=== PATIENT | male | born 1990 | race Caucasian/White ===

== ENCOUNTER 2018-11-18 01:56 | Emergency (ER) | payer MEDICAID, SELFPAY ==
[2018-11-18 01:57] VITALS: BP 150/87; PULSE 84; RESP 16; TEMP 36.9; O2SAT 97; BMI 25.2
--- NOTE | 2018-11-18 02:31 | ED.DCSUM_ITS ---
- ER Visit Summary Date of Service: 11/18/18 Chief Complaint: Left thumb laceration History of Present Illness: The patient is a 28 M who has a left thumb laceration. Happened 1/2-hour ago. He was using a saws all when he cut into his left thumb. His last tetanus is unknown. Denies any loss of function of the thumb. No other symptoms. Physical Examination: Left thumb exam reveals a small laceration on the lateral part of the nail that extends about 0.5 cm into the nail. The involvement of the skin is only about 0.2 cm. It is non-gaping. He has full range of motion. It does not go into the nailbed. Test Results: None performed Emergency Department Course and Treatment: The patient's tetanus will be updated. He will be given Tylenol. I did put Dermabond on the small area on the lateral nailbed that was slightly lacerated. The laceration into the finger nail will grow out on its own. I do not feel he needs any repair of the nail because the nailbed is intact and normal. Patient will be discharged. Treatment Plan: [] Disposition: Discharge Impression: Left thumb laceration, 0.2 cm This note was generated with [employer] dictation software. It may contain incorrect words, spelling, and punctuation that were not noted in review of the chart prior to signing ED Disposition - Plan for ED Patient: Referrals: Care Physician,No Primary [Primary Care Provider] -
--- NOTE | 2018-11-18 02:33 | ED.DEP ---
ED Disposition - Plan for ED Patient: Disposition: Home or Assisted Living Instructions: LACERATION, Hand Referrals: Care Physician,No Primary [Primary Care Provider] -
[2018-11-18] MEDS: Acetaminophen 500 MG Tablet 1000 MG PO (02:34)
[2018-11-18] MEDS: Diphth,Pertuss(Acell),Tet Vac 0.5 ML Vial IM (02:35)
[2018-11-18 03:04] VITALS: BP 138/94; PULSE 75; RESP 16; O2SAT 99
== END 2018-11-18 03:04 | disposition home or self-care (01) ==
PROVIDERS: Emergency Provider Emergency Medicine
DX: S61.112A Laceration without foreign body of left thumb with damage to nail, initial encounter (principal); Z23 Encounter for immunization; Z72.0 Tobacco use; W29.3XXA Contact with powered garden and outdoor hand tools and machinery, initial encounter; Y93.89 Activity, other specified; Y92.89 Other specified places as the place of occurrence of the external cause; Y99.8 Other external cause status
CPT/HCPCS: 90715

== ENCOUNTER 2018-11-18 13:01 | Emergency (ER) | payer MEDICAID, SELFPAY ==
[2018-11-18 01:57] VITALS: BMI 25.2
[2018-11-18 13:02] VITALS: BP 161/83; PULSE 109; RESP 18; TEMP 36.8; O2SAT 98; BMI 25.1
--- NOTE | 2018-11-18 13:42 | ED.VISSUMM ---
- ER Visit Summary Date of Service: 11/18/18 Chief Complaint: Laceration History of Present Illness: The patient is a 28 M laceration to the left thumb. This occurred yesterday. He was seen in the ED. The cutaneous wound was glued. The nail bed was not injured and the nail was left in place. Patient presents for pain and bleeding. Physical Examination: Left thumb shows a 2 mm laceration adjacent to the nailbed which appears to have been closed with tissue adhesive. There is scant bleeding from the nail laceration. Diffuse pain on palpation. Otherwise thumb is soft. No erythema or discharge. No warmth. Good strength and range of motion. Test Results: None indicated Emergency Department Course and Treatment: There is no any indication for testing or other diagnostic imaging. There is no indication that he has a foreign body, bone involvement, tendon involvement, infection. Risks were discussed. He received a dose of [place] here. He was treated with bacitracin and a dressing was applied. Follow-up with primary care. Patient was concerned that he did not get a referral to hand surgery. I advised that he will likely not need to see hand surgery, but if he has worsening issues, he was referred to Dr. Whitman. Treatment Plan: As above Disposition: Discharge Impression: 1. Left thumb laceration subsequent encounter This note was generated with [employer] dictation software. It may contain incorrect words, spelling, and punctuation that were not noted in review of the chart prior to signing ED Disposition - Plan for ED Patient: Referrals: Davie Carvajal MD [Primary Care Provider] -
--- NOTE | 2018-11-18 13:45 | ED.DEP ---
ED Disposition - Plan for ED Patient: Instructions: LACERATION, Hand Prescriptions: Naproxen [Naprosyn] 500 mg PO BID PRN #20 tab Prescription Printed Referrals: Davie Carvajal MD [Primary Care Provider] - Michael Whitman MD [STAFF PHYSICIAN] - As Needed
[2018-11-18] MEDS: HYDROcodone Bitartrate/Apap 5/325 Tablet PO (13:49)
[2018-11-18 14:01] VITALS: BP 138/79; PULSE 99; RESP 16; O2SAT 99
== END 2018-11-18 14:02 | disposition home or self-care (01) ==
LOC: ED 13:41
PROVIDERS: Emergency Provider Emergency Medicine; Family Provider Family Medicine; PCP Family Medicine
DX: S61.112D Laceration without foreign body of left thumb with damage to nail, subsequent encounter (principal); S61.112A Laceration without foreign body of left thumb with damage to nail, initial encounter; Z23 Encounter for immunization; Z72.0 Tobacco use; W29.3XXA Contact with powered garden and outdoor hand tools and machinery, initial encounter; Y93.89 Activity, other specified; Y92.89 Other specified places as the place of occurrence of the external cause; Y99.8 Other external cause status
CPT/HCPCS: 12001; 90715; 99282

== ENCOUNTER 2019-03-03 14:38 | Emergency (ER) | payer MEDICAID, SELFPAY ==
[2019-03-03 14:42] VITALS: BP 122/71; PULSE 71; RESP 18; TEMP 36.5; O2SAT 96; BMI 24.3
--- NOTE | 2019-03-03 15:46 | EKG12_ITS ---
Test Reason : CP Blood Pressure : / mmHG Vent. Rate : 068 BPM Atrial Rate : 068 BPM P-R Int : 120 ms QRS Dur : 086 ms QT Int : 390 ms P-R-T Axes : 070 081 065 degrees QTc Int : 414 ms Normal sinus rhythm Normal ECG Confirmed by JESÚS SOSA MD ([id number]), tape editor PHILLY NEWMAN ([id number]) on 03/07/2019 10:52:14 AM Referred By: ELSA
--- NOTE | 2019-03-03 15:46 | ED.VISSUMM ---
- ER Visit Summary Date of Service: 03/03/19 Chief Complaint: Chest pain History of Present Illness: The patient is a 28 M presenting with chest pain. Patient states this started around 11 AM. Pain has been intermittent. He has pain left side of his chest. He has associated mild shortness of breath. He has had a cough. He states has been under a lot of stress. Denies depression or suicidal ideation. He denies PE/DVT risk factors. Denies drug use. He has a family history of early heart disease, smoking, no other CAD risk factors. Physical Examination: Vitals are stable. Patient is afebrile. Alert no acute distress. HEENT exam is unremarkable. Neck is supple. Lungs are clear and equal bilaterally. Heart is regular rate and rhythm. Abdomen is soft nontender nondistended. Extremities are unremarkable. Skin is warm and dry. No focal neurologic deficit. Remainder of exam is unremarkable. Emergency Department Course and Treatment: Patient given aspirin. EKG is sinus rate of 68 with no acute ischemic changes. Chest x-ray shows no acute process. CBC, chemistries unremarkable. Troponin is negative. D-dimer negative. Patient's heart score is 1. He declined delta troponin. He feels that this was likely a panic attack. He is feeling improved. He is advised to return to the ED if he has any worsening complaints. He will follow-up with his primary care physician. Disposition: Discharge home Impression: Atypical chest pain This note was generated with [employer] dictation software. It may contain incorrect words, spelling, and punctuation that were not noted in review of the chart prior to signing ED Disposition - Plan for ED Patient: Instructions: CHEST PAIN, Uncertain Cause Referrals: Davie Carvajal MD [Primary Care Provider] -
--- NOTE | 2019-03-03 15:50 | RAD_ITS ---
STUDY: X-RAY CHEST REASON FOR EXAM: Male, 28 years old. Chest pain TECHNIQUE: Single AP portable view of the chest. COMPARISON: 10/05/2015 FINDINGS: The lungs are clear and expanded. There is no demonstrated pleural abnormality. Normal size heart. Normal mediastinum and [place]. Normal visualized pulmonary arteries. Normal visualized aortic arch and descending thoracic aorta. Normal visualized thoracic spine. Normal visualized ribs, clavicles, and shoulders. There is no demonstrated abnormality of the visualized soft tissue structures of the upper abdomen. RAD/Chest 1 View (Portable) IMPRESSION: Normal x-ray examination of the chest. Electronically Signed: Heron Matos MD at 16:06 EDT Tel , Service support ,
[2019-03-03 15:59] LABS: Absolute Lymphocyte Count 2.57 X10^3/uL (0.83-4.51); Absolute Neutrophil Count 3.9 X10^3/uL (2.0-7.7); Basophil# 0.04 X10^3/uL; Basophil% 0.5 % (0-1); Eosinophil# 0.11 X10^3/uL; Eosinophils% 1.5 % (0-5); Hematocrit 42.9 % (40-54); Lymphocyte # 2.57 X10^3/ul (4.0); Lymphocyte % 34.2 % (19-41); Mean Corp Hgb Conc 32.6 g/dL (32-36); Mean Corpuscular Hgb 29.7 pg (27.0-32.0); Mean Corpuscular Volume 91.1 fL (80-94); Monocyte# 0.82 X10^3/uL; Monocyte% 10.9 % (0-10); NRBC Flagged by Analyzer 0 % (0-5); Neutrophil # 3.94 X10^3/uL (2.7-7.7); Neutrophil % 52.5 % (47-70); Platelet Count 260 K/mm3 (150-450); RBC Distribution Width CV 13.2 % (11.6-14.6); Red Blood Count 4.71 M/mm3 (4.6-6.2); White Blood Count 7.5 K/mm3 (4.4-11.0)
[2019-03-03 16:21] VITALS: BP 126/81; PULSE 62; RESP 18; O2SAT 98
[2019-03-03 16:21] LABS: D-Dimer Quantitative (DVT/PE) 0.32 FEU/ug/m (0.27-0.49)
[2019-03-03 16:26] LABS: Anion Gap 7 (5-15); BUN 16 mg/dL (7-18); BUN/Creat Ratio 15.1 RATIO (10-20); Chloride 107 mmol/L (98-107); Creatinine, Serum 1.06 mg/dL (0.70-1.30); EST Glomerular Filtration Rate 87 mL/min (>60); Est Glom Filt Rate - Afr Amer 106 mL/min (>60); Estimated Creatinine Clearance 106.17 ml/min; Glucose 91 mg/dL (74-106); Potassium 3.8 mmol/L (3.5-5.1); Sodium Level 139 mmol/L (136-145)
--- NOTE | 2019-03-03 16:36 | ED.DEP ---
ED Disposition - Plan for ED Patient: Instructions: CHEST PAIN, Uncertain Cause Referrals: Davie Carvajal MD [Primary Care Provider] -
[2019-03-03] MEDS: Aspirin 81 MG TAB.CHEW 324 MG PO (16:57)
[2019-03-03 17:03] VITALS: BP 123/88; PULSE 63; RESP 18; O2SAT 98
== END 2019-03-03 17:04 | disposition home or self-care (01) ==
PROVIDERS: Emergency Provider Emergency Medicine; Family Provider Family Medicine; PCP Family Medicine
DX: R07.89 Other chest pain (principal); Z72.0 Tobacco use
CPT/HCPCS: 71045; 80048; 84484; 85025; 85379; 93005; 99285; A4216

== ENCOUNTER 2019-04-08 09:26 | Emergency (ER) | payer MEDICAID, SELFPAY ==
[2019-04-08 09:27] VITALS: BP 134/70; PULSE 70; RESP 16; TEMP 36.4; O2SAT 100; BMI 24.3
--- NOTE | 2019-04-08 09:41 | RAD_ITS ---
STUDY: X-RAY - LEFT FOOT CLINICAL: Male, 28 years old. TECHNIQUE: view(s) of the foot. COMPARISON: None. FINDINGS: There is no evidence of osseous or articular abnormality seen. No soft tissue swelling identified. Again noted the undisplaced fracture of the lateral malleolus. RAD/Foot min 3 Views IMPRESSION: Negative x-ray examination of the left foot. Electronically Signed: Tom Baldwin, at 10:26 EST Tel , Service support ,
--- NOTE | 2019-04-08 09:41 | RAD_ITS ---
STUDY: X-RAY - LEFT TIBIA AND FIBULA REASON FOR EXAM: Male, 28 years old. TECHNIQUE: view(s) of the tibia and fibula were obtained. COMPARISON: None. FINDINGS: Normal visualized tibia. Normal visualized fibula. The soft tissue structures are unremarkable. There is an undisplaced fracture of the lateral malleolus RAD/Tibia & Fibula 2 Views IMPRESSION: Undisplaced fracture lateral lateral malleolus the study is otherwise negative. Electronically Signed: Tom Baldwin, at 10:28 EST Tel , Service support ,
--- NOTE | 2019-04-08 09:41 | RAD_ITS ---
STUDY: X-RAY - LEFT ANKLE REASON FOR EXAM: Male, 28 years old. TECHNIQUE: 3 view(s) of the ankle. COMPARISON: None. FINDINGS: There is an undisplaced fracture involving the lateral malleolus without significant soft tissue swelling. The ankle mortise is unremarkable. The subtalar joint is within normal limits. RAD/Ankle min 3 Views IMPRESSION: Undisplaced fracture lateral malleolus Electronically Signed: Tom Baldwin, at 10:23 EST Tel , Service support ,
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
[2019-04-08] MEDS: HYDROcodone Bitartrate/Apap 5/325 Tablet PO (09:46)
[2019-04-08 10:32] VITALS: RESP 18
--- NOTE | 2019-04-08 10:38 | DCINST.ED_ITS ---
ED Disposition - Plan for ED Patient: Disposition: Home or Assisted Living Instructions: ANKLE FRACTURE (Distal Fibula), closed Prescriptions: Hydrocodone/Acetaminophen [[place] 7.5-325 Tablet] 1 ea PO Q4H PRN PRN #20 tab PRN Reason: Pain Or Fever Prescription Printed Referrals: Adolfo Phelps DO [STAFF PHYSICIAN] - As soon as possible Additional Instructions: Ice and elevate. No weightbearing until seen in follow-up with orthopedic physician. They may change her over to a walking boot. [place] for pain and Motrin for pain and swelling. Do not drive or drink alcohol while using the [place].
== END 2019-04-08 10:58 | disposition home or self-care (01) ==
PROVIDERS: Emergency Provider Emergency Medicine; Family Provider Family Medicine; PCP Family Medicine
DX: S82.832A Other fracture of upper and lower end of left fibula, initial encounter for closed fracture (principal); Z72.0 Tobacco use; V09.9XXA Pedestrian injured in unspecified transport accident, initial encounter; Y93.89 Activity, other specified; Y92.008 Other place in unspecified non-institutional (private) residence as the place of occurrence of the external cause; Y99.8 Other external cause status
CPT/HCPCS: 73590; 73610; 73630; 99285

== ENCOUNTER → 2019-04-13 08:42 | Outpatient (CLI) | payer MEDICAID, SELFPAY ==
[2019-04-13 08:38] VITALS: BMI 24.3
--- NOTE | 2019-04-13 08:44 | RAD_ITS ---
STUDY: X-RAY - LEFT ANKLE REASON FOR EXAM: Male, 28 years old. Follow-up fracture TECHNIQUE: 3 view(s) of the ankle. COMPARISON: Previous study of 04/08/2019 FINDINGS: Normal visualized distal tibia and fibula. There is a nondisplaced oblique fracture of the lateral malleolus. Normal tibiotalar articulation and ankle mortise. Normal visualized talus and calcaneus. The visualized subtalar, talonavicular, calcaneocuboid and tarsal articulations are normal. The soft tissue structures are unremarkable. RAD/Ankle min 3 Views IMPRESSION: Nondisplaced oblique hairline fracture of the lateral malleolus. Electronically Signed: Oc Miller MD at 17:15 EST , Service support ,
== END ==
PROVIDERS: Family Provider Family Medicine; PCP Family Medicine; Referring Provider Orthopaedic Surgery; Visit Provider Orthopaedic Surgery
DX: S82.892A Other fracture of left lower leg, initial encounter for closed fracture (principal)
CPT/HCPCS: 73610

== ENCOUNTER → 2019-04-20 10:45 | Outpatient (CLI) | payer MEDICAID, SELFPAY ==
[2019-04-20 07:56] VITALS: BMI 24.3
--- NOTE | 2019-04-20 10:46 | RAD_ITS ---
STUDY: X-RAY - LEFT ANKLE REASON FOR EXAM: Male, 28 years old. Follow-up fracture. TECHNIQUE: 3 view(s) of the ankle. COMPARISON: April 13, 2019. FINDINGS: Normal visualized distal tibia. The nondisplaced oblique fracture of the distal fibular diametaphysis is no longer clearly visualized possibly due to the presence of a semiradiopaque cast about the foot and ankle. Normal tibiotalar articulation and ankle mortise. Normal visualized talus and calcaneus. The visualized subtalar, talonavicular, calcaneocuboid and tarsal articulations are normal. The soft tissue structures are unremarkable. RAD/Ankle min 3 Views IMPRESSION: Limited visualization of the distal fibular fracture due to the semiradiopaque cast. There is no change in alignment. Electronically Signed: Moncho Alejandre DO at 19:04 EST Tel [phone], Service support ,
== END ==
PROVIDERS: Family Provider Family Medicine; PCP Family Medicine; Referring Provider Orthopaedic Surgery; Visit Provider Orthopaedic Surgery
DX: S82.62XA Displaced fracture of lateral malleolus of left fibula, initial encounter for closed fracture (principal)
CPT/HCPCS: 73610

== ENCOUNTER → 2019-05-02 09:34 | Outpatient (CLI) | payer MEDICAID, SELFPAY ==
[2019-04-20 07:56] VITALS: BMI 24.3
--- NOTE | 2019-05-02 09:35 | RAD_ITS ---
STUDY: X-RAY - LEFT ANKLE REASON FOR EXAM: Male, 28 years old. FX F/U TECHNIQUE: 3 view(s) of the ankle. COMPARISON: None. FINDINGS: Normal visualized distal tibia and fibula. Healing fracture of the lateral malleolus with normal alignment, otherwise normal medial and lateral malleoli. Mild degenerative disease of the tibiotalar articulation otherwise normal ankle mortise. Normal visualized talus and calcaneus. The visualized subtalar, talonavicular, calcaneocuboid and tarsal articulations are normal. There is no demonstrated fracture. The soft tissue structures are unremarkable. RAD/Ankle min 3 Views IMPRESSION: Healing fracture of the distal fibula. Mild degenerative disease. No subluxation. Electronically Signed: Bruna Mckeon MD at 0:56 EST , Service support ,
== END ==
PROVIDERS: Family Provider Family Medicine; PCP Family Medicine; Referring Provider Orthopaedic Surgery; Visit Provider Orthopaedic Surgery
DX: S82.65XA Nondisplaced fracture of lateral malleolus of left fibula, initial encounter for closed fracture (principal)
CPT/HCPCS: 73610

== ENCOUNTER 2019-05-11 10:26 | Emergency (ER) | payer MEDICAID, SELFPAY ==
[2019-05-02 10:07] VITALS: BMI 24.3
[2019-05-11 10:27] VITALS: BP 121/81; PULSE 95; RESP 17; TEMP 36.6; O2SAT 98; BMI 25.1
--- NOTE | 2019-05-11 10:39 | RAD_ITS ---
STUDY: X-RAY - LEFT FOOT CLINICAL: Male, 28 years old. INCREASED LEFT ANKLE PAIN AFTER TWISTING IT LAST NIGHT -- RECENT FX, WALKING BOOT IN PLACE -- CAST REMOVED ON 05/02 TECHNIQUE: 3 view(s) of the foot. COMPARISON: 04/08/2019 FINDINGS: Normal talus, calcaneus, and tarsal bones. Normal visualized subtalar, talonavicular, calcaneocuboid, tarsal and tarsometatarsal articulations. Normal metatarsi. Normal metatarsophalangeal joint of the great toe. Normal tibial and fibular sesamoid bones. Normal interphalangeal joint of the great toe. Normal phalanges of the great toe. Normal second through fifth metatarsophalangeal joints. Normal interphalangeal joints and phalanges of the lesser toes. The soft tissue structures are unremarkable. RAD/Foot min 3 Views IMPRESSION: Normal x-ray examination of the foot. Electronically Signed: Steve Jack MD at 11:20 EST , Service support ,
--- NOTE | 2019-05-11 10:41 | ED.DCSUM_ITS ---
History of Present Illness Chief Complaint: Lower Extremity Injury Informant: Patient Onset: Yesterday Current Severity: Mild Maximum Severity: Moderate Narrative: Patient presents with recurrent injury to his left ankle. He was seen on April 08 and diagnosed with a Green B distal fibula fracture. He was placed in a cast which was removed on May 02. He is currently in a walking boot and supposed to be nonweightbearing. Patient states yesterday he was without his walking boot. He had squatted down and when pushing off to stand up felt increased pain in his left ankle and lateral left foot. - Past Medical History (1) Ankle fracture Status: Resolved Past Medical History - Allergies and Home Meds Allergies/Adverse Reactions: Allergies ranitidine HCl [From Zantac] Allergy (Verified 05/11/19 10:27) Other tramadol Adverse Reaction (Mild, Verified 05/11/19 10:27) Other makes pt shaky. Believes he may have seized. Primary Care Physician: Davie Carvajal MD [Primary Care Provider] - Prior records reviewed: Yes Surgical History: no surgical history Lives: With Family Smoking Status: Current every day smoker Review of Systems General: Denies: Chills, Fever Eyes: Denies: Visual changes - bilaterally ENT: Denies: Bilateral ear pain Cardiovascular: Denies: Chest pain Respiratory: Denies: Dyspnea, Cough Gastrointestinal: Denies: Abdominal pain, Nausea, Vomiting, Diarrhea Musculoskeletal: Reports: Arthralgias, Extremity Pain Skin: Denies: Rash Hematologic: Denies: Easy bruising Allergy: Denies: Uticaria Physical Exam Vital Signs/Narrative: Vital Signs Temp Pulse Resp BP Pulse Ox 05/11/19 10:27 97.9 F 95 17 121/81 H 98 Inital Vital Signs reviewed: Yes General: Well nourished, Well developed Head: Normocephalic ENT: Moist mucous membranes Neck: Supple Cardiovascular: Regular rate, Regular rhythm Respiratory: No distress, CTA bilaterally Abdomen: Soft, Nontender Extremities: - - Tenderness palpation of the lateral malleolus and over the proximal fifth metatarsal. Mild edema noted. No ecchymosis. Strong distal pulses and wiggles toes appropriately. No tenderness at the knee or proximal fibula. Skin: Normal color Neurological: Alert, Oriented x3 Psychological: Normal affect Diagnostic/Tx/Re-eval Impressions Foot X-Ray 05/11/19 10:39 IMPRESSION: Normal x-ray examination of the foot. Electronically Signed: Steve Jack MD at 11:20 EST , Service support , Ankle X-Ray 05/11/19 10:45 IMPRESSION: Healed tibia and fibular fractures. No acute fracture or suspicious osseous lesion Electronically Signed: Steve Jack MD at 11:22 EST , Service support , 05/11/19 10:39 Foot min 3 Views [RAD] Stat 05/11/19 10:45 Ankle min 3 Views [RAD] Stat - Medical Decision Making She was given naproxen here for pain as he did drive himself to the emergency room and has 2 small children with him. X-ray results are discussed with him. He is to be in his walking boot and using crutches. He will follow-up with Dr. Phelps. He will be given a short course of [place] to help with pain. ED Disposition - Plan for ED Patient: Disposition: Home or Assisted Living Diagnosis: Ankle sprain Instructions: Sprain, Ankle, with X-Ray Prescriptions: Hydrocodone Bitart/Apap 5-325 [[place] 5MG-325MG] 1 tablet PO Q6H PRN PRN 3 Days #10 tablet PRN Reason: Pain Referrals: Adolfo Phelps DO [STAFF PHYSICIAN] - 1 Week
--- NOTE | 2019-05-11 10:45 | RAD_ITS ---
STUDY: X-RAY - LEFT ANKLE REASON FOR EXAM: Male, 28 years old. INCREASED LEFT ANKLE PAIN AFTER TWISTING IT LAST NIGHT -- RECENT FX, WALKING BOOT IN PLACE -- CAST REMOVED ON 05/02 TECHNIQUE: 3 view(s) of the ankle. COMPARISON: 04/20/2019 FINDINGS: Previously noted fractures in the distal tibia and fibula have healed. There is no cortical irregularity or fracture lucency noted. Normal medial and lateral malleoli. Normal tibiotalar articulation and ankle mortise. Normal visualized talus and calcaneus. The visualized subtalar, talonavicular, calcaneocuboid and tarsal articulations are normal. The soft tissue structures are unremarkable. RAD/Ankle min 3 Views IMPRESSION: Healed tibia and fibular fractures. No acute fracture or suspicious osseous lesion Electronically Signed: Steve Jack MD at 11:22 EST , Service support ,
[2019-05-11] MEDS: Naproxen 500 MG Tablet PO (11:10)
== END 2019-05-11 11:48 | disposition home or self-care (01) ==
PROVIDERS: Emergency Provider Emergency Medicine; Family Provider Family Medicine; PCP Family Medicine
DX: S93.402A Sprain of unspecified ligament of left ankle, initial encounter (principal); X58.XXXA Exposure to other specified factors, initial encounter; Y93.9 Activity, unspecified; Y92.9 Unspecified place or not applicable; F17.200 Nicotine dependence, unspecified, uncomplicated
CPT/HCPCS: 73610; 73630; 99283

== ENCOUNTER → 2019-05-23 10:28 | Outpatient (CLI) | payer MEDICAID, SELFPAY ==
[2019-05-11 10:27] VITALS: BMI 25.1
--- NOTE | 2019-05-23 10:28 | RAD_ITS ---
STUDY: X-RAY - LEFT ANKLE REASON FOR EXAM: Fracture follow-up. TECHNIQUE: 3 view(s) of the ankle. COMPARISON: Radiographs 05/11/2019, 05/02/2019 and 04/13/2019. FINDINGS: There are healing nondisplaced fractures of the distal tibia and fibula. There is a subtle radiolucency in the medial talar dome, a possible osteochondral lesion. Normal visualized talus and calcaneus. The visualized subtalar, talonavicular, calcaneocuboid and tarsal articulations are normal. The soft tissue structures are unremarkable. RAD/Ankle min 3 Views IMPRESSION: Healing nondisplaced fractures of the distal tibia and fibula. Subtle radiolucency in the medial talar dome, a possible osteochondral lesion. Electronically Signed: Eric Gtz MD at 11:44 EST Tel , Service support ,
== END ==
PROVIDERS: Family Provider Family Medicine; PCP Family Medicine; Referring Provider Orthopaedic Surgery; Visit Provider Orthopaedic Surgery
DX: S82.65XD Nondisplaced fracture of lateral malleolus of left fibula, subsequent encounter for closed fracture with routine healing (principal)
CPT/HCPCS: 73610

== ENCOUNTER → 2019-06-03 17:44 | Outpatient (CLI) | payer MEDICAID, SELFPAY ==
[2019-05-23 10:36] VITALS: BMI 25.1
--- NOTE | 2019-06-03 17:45 | MRI_ITS ---
STUDY: MRI LEFT ANKLE WITHOUT CONTRAST REASON FOR EXAM: Male, 28 years old. Continued LEFT ankle pain s/p injury over 2 months ago, EVAL FOR AN OSTEOCHONDRAL INJURY TECHNIQUE: Standardized fat and water weighted pulse sequences were obtained in all 3 orthogonal planes. COMPARISON: X-ray 05/23/2019 FINDINGS: Normal subcutis adipose space. Normal posterior tibialis tendon. Normal flexor digitorum longus tendon. Normal flexor hallucis longus tendon. Normal peroneus longus and brevis tendons. Normal tibialis anterior tendon. Normal extensor hallucis longus tendon. Normal extensor digitorum longus tendons. Normal Achilles tendon and teno-osseous insertion. Normal plantar fascia. Normal plantar calcaneal tubercles. Normal intrinsic muscles of the rearfoot. Normal distal tibiofibular syndesmotic ligamentous complex. Normal lateral ligamentous complex. Normal subtalar ligaments and sinus tarsi. Normal deltoid ligamentous complexes. Normal plantar calcaneonavicular (spring) ligament. Healing transversely oriented fracture through the posterior aspect of the tibia extending into the tibiotalar joint with mild surrounding marrow edema. Healing nondisplaced oblique fracture of the distal fibula at the level of the tibial plafond with surrounding marrow edema. Associated mild stress reaction of the head of the calcaneus, cuboid and the navicular bone as well as the proximal first metatarsal bone. Normal tibiotalar articulation. Normal talar dome. Normal subtalar articulations. Normal talonavicular articulation. Normal calcaneocuboid articulation. Normal navicular-cuneiform articulations. MRI/Lower Ext Joint Only (Routine) IMPRESSION: Healing fractures of the distal tibia and fibula with stress reaction of the mid foot but no osteochondral lesion of the talus. Electronically Signed: Heron Matos MD at 18:21 EST Tel , Service support ,
== END ==
PROVIDERS: PCP Family Medicine; Referring Provider Orthopaedic Surgery; Visit Provider Orthopaedic Surgery
DX: S82.892D Other fracture of left lower leg, subsequent encounter for closed fracture with routine healing (principal)
CPT/HCPCS: 73721

== ENCOUNTER 2020-02-28 22:33 | Emergency (ER) | payer MEDICAID, SELFPAY ==
[2019-06-10 09:36] VITALS: BMI 25.1
[2020-02-28 22:35] VITALS: BP 141/94; PULSE 93; RESP 17; TEMP 36.2; O2SAT 98; BMI 24.3
[2020-02-28] MEDS: Diphth,Pertuss(Acell),Tet Vac 0.5 ML Vial IM (22:45)
--- NOTE | 2020-02-28 23:11 | ED.VIS.GEN ---
History of Present Illness Chief Complaint: Laceration Informant: Patient Narrative: Patient states he was trying to get batteries out of a toy when his knife slipped and stabbed him in the dorsum of the right hand along the first metacarpal. He states he has extreme pain. Unknown last tetanus. He believes the knife went in over an inch. Past Medical History - Allergies and Home Meds Allergies/Adverse Reactions: Allergies ranitidine HCl [From Zantac] Allergy (Verified 02/28/20 22:36) Other tramadol Adverse Reaction (Mild, Verified 02/28/20 22:36) Other makes pt shaky. Believes he may have seized. Primary Care Physician: Davie Carvajal MD [Primary Care Provider] - Prior records reviewed: Yes Surgical History: no surgical history Lives: With Family Smoking Status: Current every day smoker Drugs: None Review of Systems General: Denies: Chills, Fever, Sweats Eyes: Denies: Visual changes - bilaterally, Diplopia ENT: Denies: Rhinorrhea, Sore throat Cardiovascular: Denies: Chest pain, Palpitations Respiratory: Denies: Dyspnea, Cough, Dyspnea on exertion Gastrointestinal: Denies: Abdominal pain, Nausea, Vomiting, Diarrhea, Melena, Hematochezia Genitourinary: Denies: Dysuria, Hematuria, Frequency Musculoskeletal: Reports: Extremity Pain. Denies: Back pain Skin: Denies: Rash, Wounds Neurological: Denies: Headache, Weakness, Numbness Physical Exam Vital Signs/Narrative: Vital Signs Temp Pulse Resp BP Pulse Ox 02/28/20 22:35 97.1 F L 93 17 141/94 H 98 Inital Vital Signs reviewed: Yes General: Well nourished, Well developed, No Acute Distress Head: Normocephalic, Atraumatic Eyes: Perrl, EOMI ENT: Moist mucous membranes, No rhinorrhea Neck: Supple, Nontender Cardiovascular: Regular rate, Regular rhythm, No murmurs Respiratory: No distress, CTA bilaterally, Chest nontender Abdomen: Soft, Nontender, Nondistended, Normal bowel sounds Back: Nontender, Normal Inspection Extremities: Nontender, No edema Skin: Normal color, No rash, Trauma - There is a 0.75 cm linear laceration over the dorsum of the first metacarpal of the left hand. Normal extensor tendon function. Examining the wound in a bloodless field shows that it did not appear to violate the fascia. Neurological: Alert, Oriented x3, Cranial nerves II-XII grossly intact, Normal Strength, Normal Sensation Psychological: Normal affect, Normal Mood Diagnostic/Tx/Re-eval - Medical Decision Making The wound was locally anesthetized using 1% lidocaine washed with Shur-Clens and explored. It was closed using a total of 2 simple interrupted 5-0 Ethilon sutures. It was dressed with bacitracin and Band-Aid by this physician wound care discussed with patient. Stitches will need to be removed in 7 to 10 days. Tetanus is updated with Adacel. Return if worsening or concerns ED Disposition - Plan for ED Patient: Disposition: Home or Assisted Living Diagnosis: Laceration of left hand Instructions: ED Laceration Hand Referrals: Davie Carvajal MD [Primary Care Provider] - (in 7-10 days for suture removal)
[2020-02-28 23:22] VITALS: BP 132/79; PULSE 87; RESP 14; O2SAT 98
== END 2020-02-28 23:24 | disposition home or self-care (01) ==
PROVIDERS: Emergency Provider Emergency Medicine; PCP Family Medicine
DX: S61.412A Laceration without foreign body of left hand, initial encounter (principal); F17.200 Nicotine dependence, unspecified, uncomplicated; Z23 Encounter for immunization; W26.0XXA Contact with knife, initial encounter; Y93.89 Activity, other specified; Y92.009 Unspecified place in unspecified non-institutional (private) residence as the place of occurrence of the external cause; Y99.8 Other external cause status
CPT/HCPCS: 12001; 90715; 99283

== ENCOUNTER 2020-03-05 16:22 | Emergency (ER) | payer MEDICAID, SELFPAY ==
[2020-03-05 16:23] VITALS: BP 155/89; PULSE 103; RESP 20; TEMP 36.3; O2SAT 99; BMI 23.1
--- NOTE | 2020-03-05 16:48 | RAD_ITS ---
STUDY: X-RAY - RIGHT HAND REASON FOR EXAM: Male, 29 years old. LATERAL RIGHT HAND PAIN AND SWELLING AFTER INJURY. TECHNIQUE: 3 view(s) of the hand. COMPARISON: 12/11/2015 FINDINGS: Normal radiocarpal articulation. Normal distal radioulnar joint. Normal visualized carpal bones. Normal carpal articulations Normal carpometacarpal articulation of the thumb. Normal second through fifth carpometacarpal joints. Normal metacarpi. Suspect healed boxers fractures of the fourth and fifth metacarpal bones. Normal metacarpophalangeal joint of the thumb. Normal interphalangeal joint of the thumb. Normal proximal and distal phalanges of the thumb. Normal metacarpophalangeal joints of the second through fifth fingers. Normal proximal and distal interphalangeal joints of the second through fifth fingers. Normal phalanges of the second through fifth fingers. The soft tissue structures are unremarkable. RAD/Hand Min 3 Views IMPRESSION: No acute fracture or dislocation. Electronically Signed: Heron Matos MD at 17:09 EDT Tel , Service support ,
--- NOTE | 2020-03-05 17:28 | ED.VIS.GEN ---
History of Present Illness Chief Complaint: Upper Extremity Injury Informant: Patient Onset: Today Context: Sudden Onset Timing: Continuous Current Severity: Moderate Maximum Severity: Moderate Narrative: Patient is a 29-year-old male who is right-hand dominant that presents to the emergency department right hand injury. Patient states that his son dropped his mask when they were getting out of the car. He states that he went to reach for it and his son slammed the door. It struck him on the dorsum of the hand. He had immediate pain and swelling. He has fracture of his hand before in the past. He presented here immediately. He is otherwise been in his normal state of health. Prior similar symptoms: No Recent Illness/Hospitalization: No Past Medical History - Allergies and Home Meds Allergies/Adverse Reactions: Allergies ranitidine HCl [From Zantac] Allergy (Verified 03/05/20 16:23) Other tramadol Adverse Reaction (Mild, Verified 03/05/20 16:23) Other makes pt shaky. Believes he may have seized. Primary Care Physician: Davie Carvajal MD [Primary Care Provider] - Prior records reviewed: Yes Past Medical History: None Surgical History: no surgical history Smoking Status: Current every day smoker Review of Systems General: Denies: Chills, Fever, Sweats Eyes: Denies: Visual changes - bilaterally, Diplopia ENT: Denies: Rhinorrhea, Sore throat Cardiovascular: Denies: Chest pain, Palpitations Respiratory: Denies: Dyspnea, Cough, Dyspnea on exertion Gastrointestinal: Denies: Abdominal pain, Nausea, Vomiting, Diarrhea, Melena, Hematochezia Genitourinary: Denies: Dysuria, Hematuria, Frequency Musculoskeletal: Denies: Back pain, Extremity Pain Skin: Denies: Rash, Wounds Neurological: Denies: Headache, Weakness, Numbness Physical Exam Vital Signs/Narrative: Vital Signs Temp Pulse Resp BP Pulse Ox 03/05/20 16:23 97.3 F L 103 H 20 H 155/89 H 99 Inital Vital Signs reviewed: Yes General: Well nourished, Well developed, No Acute Distress Head: Normocephalic, Atraumatic Eyes: Perrl, EOMI ENT: Moist mucous membranes, No rhinorrhea Neck: Supple, Nontender Cardiovascular: Regular rate, Regular rhythm, No murmurs Respiratory: No distress, CTA bilaterally, Chest nontender Abdomen: Soft, Nontender, Nondistended, Normal bowel sounds Back: Nontender, Normal Inspection Extremities: No edema, Tenderness - Tenderness on the dorsum of the hand. No rotational deformity. Skin is intact. Skin: Normal color, No rash Neurological: Alert, Oriented x3, Cranial nerves II-XII grossly intact, Normal Strength, Normal Sensation Psychological: Normal affect, Normal Mood Diagnostic/Tx/Re-eval - Medical Decision Making Patient presents with injury to the right hand. X-rays were obtained. There is no onset fracture or dislocation. The patient be placed in an Marko wrap. He will continue ice and elevation. He will be kept on anti-inflammatories. He will be discharged home. Impression 1. Right hand contusion ED Disposition - Plan for ED Patient: Instructions: ED EXTREMITY CONTUSION Upper Prescriptions: Naproxen [Naprosyn] 500 mg PO BID PRN #20 tab Prescription Printed Referrals: Davie Carvajal MD [Primary Care Provider] -
[2020-03-05] MEDS: HYDROcodone Bitartrate/Apap 5/325 Tablet PO (17:49)
[2020-03-05 17:50] VITALS: PULSE 92; RESP 17; O2SAT 97
== END 2020-03-05 17:53 | disposition home or self-care (01) ==
LOC: ED 17:32
PROVIDERS: Emergency Provider Emergency Medicine; PCP Family Medicine
DX: S60.221A Contusion of right hand, initial encounter (principal); F17.200 Nicotine dependence, unspecified, uncomplicated; W23.0XXA Caught, crushed, jammed, or pinched between moving objects, initial encounter; Y93.89 Activity, other specified; Y92.89 Other specified places as the place of occurrence of the external cause; Y99.8 Other external cause status
CPT/HCPCS: 73130; 99281

== ENCOUNTER 2022-06-06 12:08 | Emergency (ER) | payer MEDICAID, SELFPAY ==
[2022-06-06 12:09] VITALS: BP 161/99; PULSE 70; RESP 14; TEMP 36.2; O2SAT 100; BMI 23.7
--- NOTE | 2022-06-06 12:21 | RAD_ITS ---
STUDY: X-RAY - SACRUM/COCCYX REASON FOR EXAM: Male, 31 years old. Sacral pain following a fall. TECHNIQUE: 3 view(s) of the sacrum and coccyx were obtained. COMPARISON: None. FINDINGS: Normal bilateral sacroiliac joints. Normal visualized sacral ala and fused sacral bodies. Normal sacrococcygeal junction with a normal angulation. Normal coccygeal segments. The presacral soft tissue structures are unremarkable. RAD/Sacrum-Coccyx min 2 Views IMPRESSION: Normal x-rays of the sacrum and coccyx. Electronically Signed: Antonio Florez MD at 12:49 EST ,
--- NOTE | 2022-06-06 12:21 | RAD_ITS ---
STUDY: X-RAY - RIGHT FOOT CLINICAL: Male, 31 years old. Pain in the dorsal aspect of the foot following a recent fall TECHNIQUE: 3 view(s) of the foot. COMPARISON: None. FINDINGS: Normal talus, calcaneus, and tarsal bones. Normal visualized subtalar, talonavicular, calcaneocuboid, tarsal and tarsometatarsal articulations. Normal metatarsi. Normal metatarsophalangeal joint of the great toe. Normal tibial and fibular sesamoid bones. Normal interphalangeal joint of the great toe. Normal phalanges of the great toe. Normal second through fifth metatarsophalangeal joints. Normal interphalangeal joints and phalanges of the lesser toes. The soft tissue structures are unremarkable. RAD/Foot min 3 Views IMPRESSION: Normal x-ray examination of the foot. Electronically Signed: Antonio Florez MD at 12:48 EST ,
--- NOTE | 2022-06-06 12:22 | EX.ED.DYSGE1 ---
HPI History of Present Illness Chief Complaint: Lower Extremity Injury Detail of Chief Complaint: Injury to her right foot and tailbone Informant: patient Narrative Narrative: Patient presents the emergency department with complaint of injury to his right foot this morning as well as tailbone. Patient states that he stepped on a locker to check a locker higher up for his Chap[employer] and the lockers were not bolted into the wall and so he fell backwards landing on his tailbone. One of the lockers then landed on his foot. Patient complains of pain with walking. Denies numbness or tingling in the extremities. Denies striking his head or loss of consciousness. Denies neck pain. PFSH PFSH Home Medications naproxen 500 mg tablet 500 mg PO BID PRN #20 tabs 03/05/20 [Rx Last Taken Unknown] naproxen 500 mg tablet 500 mg PO BID #14 tabs 06/06/22 [Rx Last Taken Unknown] Allergy/AdvReac Type Severity Reaction Status Date / Time ranitidine HCl [From Zantac] Allergy Other Verified 06/06/22 12:08 tramadol AdvReac Mild Other Verified 06/06/22 12:08 Social History (Updated 06/10/19 @ 11:[address] Adolfo Phelps, DO) Smoking Status: Current every day smoker tobacco type: cigarettes ROS ROS ED Review of Systems ROS Unobtainable: other Constitutional Constitutional ED: Reports lethargy; Denies chills, fever(s), sweats or weight loss Eyes Eyes: Denies blurry vision, change in vision or diplopia ENT ENT ED: Denies rhinorrhea or sore throat Cardiovascular Cardiovascular: Denies chest pain, orthopnea or racing heartbeat Respiratory/Chest Respiratory/Chest: Denies cough, dyspnea, dyspnea on exertion, orthopnea or sputum Gastrointestinal Gastrointestinal: Denies abdominal pain, diarrhea, nausea or vomiting Genitourinary Genitourinary ED: Denies dysuria, hematuria or urinary frequency Musculoskeletal Musculoskeletal: Reports other Details: Tailbone pain and right foot pain ; Denies arthralgias, back pain, myalgias or neck pain Integumentary Denies abscess, Abrasions or rash Neurologic Neurologic: Denies headache(s) or weakness Psychiatric Psychiatric: Denies anxiety, depression or suicidal thoughts Endocrine Endocrinology: Denies polydipsia, polyphagia or polyuria Hematologic/Lymphatic Hematologic/Lymphatic: Denies easy bleeding, easy bruising or lymphadenopathy Allergic/Immunologic Allergic/Immunologic ED: Denies mouth swelling, tongue swelling or urticaria EXAM Physical Exam Const Vital Signs: 06/06/22 12:09 Temperature 97.1 F L Temperature Source Temporal Pulse Rate 70 Respiratory Rate 14 Blood Pressure 161/99 H Blood Pressure Mean 119 Pulse Ox 100 Oxygen Delivery Method Room Air Positive well nourished and well developed General Appearance ED: well developed and NAD HEENT Reports TM's clear and moist mucous membranes normocephalic and atraumatic; Negative for trauma or tenderness Tympanic Membrane ED: Yes TM's clear Eyes PERRL and EOMs intact bilaterally General Eye ED: Negative for pale conjunctiva or scleral icterus Neck no lymphadenopathy, supple and no JVD General: Negative for tenderness Chest Wall inspection of chest normal and palpation of chest normal Chest: Negative for tenderness Resp normal respiratory effort and clear to auscultation bilaterally Effort and Inspection: Negative for respiratory distress or pain with movement Auscultation: Negative for rhonchi, wheezes or diminished lung sounds Cardio regular rate, regular rhythm, S1 normal heart sound, S2 normal heart sound and no murmurs Peripheral Pulses: pulses 2+ throughout GI normal to inspection, nondistended, normoactive bowel sounds, soft to palpation, non-tender, non-distended and no masses Back/Spine no CVA tenderness Back/Spine Narrative: Patient with tenderness palpation over the coccyx and sacrum. No obvious ecchymosis or bruising noted. Extremity Extremity Narrative: Right foot-patient with tenderness to palpation over the dorsal aspect of the proximal foot. There are some mild soft tissue swelling. No ecchymosis or bruising otherwise noted. Neurovascularly intact distally. General Extremety ED: Negative for edema General Extremity: Negative for edema Neuro oriented x3, CN's II-XII intact bilaterally, no sensory deficits noted and gait normal Sensorium / Orientation: awake, alert, oriented to person, oriented to place and oriented to time Motor Exam: strength 5/5 throughout and strength abnormal Psych mental status grossly normal Skin no rashes or lesions noted and no wounds MDM MDM MDM Narrative Medical decision making narrative: Patient had x-rays of his coccyx and sacrum as well as the right foot and no fractures were noted. Patient does not want crutches. He did want restrictions as far as climbing as the [employer] will give him a bottom bunk this way he does not have to climb up to a top bunk. Patient will be given a prescription for naproxen. We will be given referral to primary care physician for follow-up within next 5 to 7 days. Radiography Diagnostic Testing: Clinical Impression(s) from Imaging Studies Foot X-Ray 06/06/22 12:21 IMPRESSION: Normal x-ray examination of the foot. Electronically Signed: Antonio Florez MD at 12:48 EST , Sacrum and Coccyx X-Ray 06/06/22 12:21 IMPRESSION: Normal x-rays of the sacrum and coccyx. Electronically Signed: Antonio Florez MD at 12:49 EST , Three-view x-rays of the right foot obtained interpreted by myself as no acute fractures or dislocations. Radiology was in agreement. Four you x-rays of coccyx and sacrum obtained interpreted by myself as no acute fractures or dislocations. Radiology in agreement. Discharge Plan Triage Chief Complaint: Lower Extremity Injury ED Provider: Iris Rivers Dx/Rx/DC Orders Clinical Impression: Coccygeal contusion, Contusion of foot, right Instructions: ED Coccyx or Sacrum Contusion, ED Contusion, Lower Extremity Prescriptions: New naproxen 500 mg tablet 500 mg PO BID Qty: 14 0RF No Action naproxen 500 MG tablet 500 mg PO BID PRN Qty: 20 0RF Primary Care Provider: Davie Carvajal Referrals: Davie Carvajal MD [Primary Care Provider] - 3-5 Days Disposition Disposition: Home, Self Care
== END 2022-06-06 14:33 | disposition home or self-care (01) ==
PROVIDERS: Emergency Provider Emergency Medicine; PCP Family Medicine; Visit Provider Emergency Medicine
DX: S30.0XXA Contusion of lower back and pelvis, initial encounter (principal); S90.31XA Contusion of right foot, initial encounter; F17.210 Nicotine dependence, cigarettes, uncomplicated; W17.89XA Other fall from one level to another, initial encounter
CPT/HCPCS: 72220; 73630; 99282

== ENCOUNTER 2022-07-17 11:09 | Emergency (ER) | payer MEDICAID, SELFPAY ==
[2022-07-17 11:09] VITALS: BP 151/98; PULSE 77; RESP 16; TEMP 36.6; O2SAT 99; BMI 24.0
--- NOTE | 2022-07-17 11:29 | EX.ED.DYSGE1 ---
HPI <DAGO Barraza - Last Filed: 07/17/22 12:52> History of Present Illness Chief Complaint: Palpitations Narrative Narrative: 32-year-old male with history of drug abuse, anxiety, depression who is currently in an outpatient program who is currently on Lexapro 5 mg, Wellbutrin 150 mg. Patient today upped his Lexapro at 10 mg and Wellbutrin 300 mg. 1 hour after taking the medicine, the patient states he started feeling palpitations, lightheaded, chest pressure. He denies any drug use. Patient states he denies any actual chest pain or shortness of breath. Patient denies any history of pulmonary embolus or DVT. He denies any recent trips. Patient denies any fever or chills. PFSH <DAGO Barraza - Last Filed: 07/17/22 12:52> [facility] Home Medications buprenorphine 8 mg-naloxone 2 mg sublingual film 1.5 film sublingual DAILY 07/17/22 [History Last Taken Unknown] bupropion HCl 300 mg 24 hr tablet, extended release 300 mg PO DAILY 07/17/22 [History Last Taken Unknown] escitalopram oxalate 10 mg tablet 10 mg PO DAILY 07/17/22 [History Last Taken Unknown] Allergy/AdvReac Type Severity Reaction Status Date / Time ranitidine HCl [From Zantac] Allergy Other Verified 07/17/22 11:12 tramadol AdvReac Mild Other Verified 07/17/22 11:12 Social History (Updated 06/10/19 @ 11:[address] Adolfo Phelps, DO) Smoking Status: Current every day smoker tobacco type: cigarettes ROS <DAGO Barraza - Last Filed: 07/17/22 12:52> ROS ED ROS Narrative Constitutional: Negative for fever, chills, weight loss, weakness Eyes: Negative for vision loss, vision change, double vision ENT: Negative for any sore throat, ear pain, congestion Cardiovascular: Negative for any chest pain. Positive tightness, chest pressure, palpitations Respiratory: Negative for any cough, sputum production, hemoptysis, dyspnea, dyspnea on exertion, orthopnea Gastrointestinal: Negative for any abdominal pain, nausea, vomiting, diarrhea, constipation, blood in stool, blood in vomit : Negative for any urinary frequency, dysuria, retention, blood in urine Muscle skeletal: Negative for any muscle joint pain, stiffness, myalgias, arthralgias, neck pain, back pain Neurological: Negative for any headache, syncope, numbness or tingling, dizziness Skin: Negative for any rashes, lumps, itching, abrasions, lacerations Psychiatric: Negative for any depression, anxiety, stress, suicidal ideation, homicidal ideation Hematologic: Negative for any easy bruising, excessive bruising, easy bleeding Allergies: Negative for any eczema, hives, rash EXAM <DAGO Barraza - Last Filed: 07/17/22 12:52> Physical Exam Narrative Exam Narrative: Vital signs reviewed. Vital signs are stable. Patient appears to be in no distress. HEET: Head normocephalic atraumatic, TMs clear bilaterally. Posterior pharynx is clear, moist mucous membranes. Nares clear bilaterally. Neck: Supple with no lymphadenopathy or tenderness. No signs of meningismus, negative jolt sign. Cardiac: Regular rate and rhythm no murmurs gallops or rubs, equal peripheral pulses bilaterally. Respiratory: Lungs clear to auscultation bilaterally. No chest tenderness. Abdomen: Soft, nontender, nondistended. No abdominal bruit or pulsatile masses. No hepatosplenomegaly Extremities: No peripheral edema, no signs of gross trauma or deformity. Active full range of motion of all extremities. Neuro: Cranial nerves II through XII intact, no focal neurological deficits. Skin: Clean dry and intact with no rash, purpura, petechiae, vesicles or pustules. Backs/flank: No CVA tenderness, no midline spinal tenderness, no deformity. Psych: Normal mood and affect. No SI, HI or acute psychosis. Const Vital Signs: 07/17/22 11:09 07/17/22 11:20 Temperature 97.8 F Temperature Source Temporal Pulse Rate 77 Respiratory Rate 16 Respiratory Effort Normal Non-Labored Blood Pressure 151/98 H Blood Pressure Mean 115 Pulse Ox 99 Oxygen Delivery Method Room Air Positive well nourished and well developed General Appearance ED: well developed <Dr. Mando Hall MD - Last Filed: 07/17/22 12:24> Physical Exam Const Vital Signs: 07/17/22 11:09 07/17/22 11:20 Temperature 97.8 F Temperature Source Temporal Pulse Rate 77 Respiratory Rate 16 Respiratory Effort Normal Non-Labored Blood Pressure 151/98 H Blood Pressure Mean 115 Pulse Ox 99 Oxygen Delivery Method Room Air [facility] <Mando FranzDAGO - Last Filed: 07/17/22 12:52> [facility] Lab Data Attestation: I reviewed the patient's lab results. Labs: Laboratory Results - last 24 hr 07/17/22 07/17/22 11:40 11:40 WBC 6.7 RBC 4.32 L Hgb 12.7 L Hct 38.8 L MCV 89.8 MCH 29.4 MCHC 32.7 RDW Std Deviation 43.5 RDW Coeff of Rapahel 13.2 Plt Count 288 MPV 10.8 Immature Gran % (Auto) 0.300 Neut % (Auto) 68.6 Lymph % (Auto) 20.5 Mcdonough % (Auto) 8.1 Eos % (Auto) 1.9 Baso % (Auto) 0.6 Absolute Neuts (auto) 4.6 Absolute Lymphs (auto) 1.37 Nucleated RBC % 0 Sodium 139 Potassium 3.3 L Chloride 108 H Carbon Dioxide 26.0 Anion Gap 5 BUN 7 Creatinine 0.93 Estim Creat Clear Calc 116.65 Est GFR (MDRD) Af Amer 120 Est GFR (MDRD) Non-Af 99 BUN/Creatinine Ratio 7.5 L Glucose 161 H Calcium 8.9 Radiography Diagnostic Testing: Clinical Impression(s) from Imaging Studies Chest X-Ray 07/17/22 12:03 IMPRESSION: Hyperinflation. The lungs are clear. Electronically Signed: Antonio Florez MD at 12:15 EST , EKG Normal sinus rhythm: Attestation: I personally reviewed and interpreted this EKG as follows: Comments: EKG shows a normal sinus rhythm with sinus arrhythmia, 73 bpm CO interval 138 ms, QRS duration 88 ms, reviewed by ER attending Differential Diagnosis Chest pain/SOB: ACS, pneumothorax and pneumonia Treatment and Re-Evaluation :: Patient presents to the emergency department with complaints of feeling of jittery, palpitations, shortness of breath after taking an increased dose of medication. Patient did receive basic laboratory values, patient CBC showed slight anemia with a hemoglobin 12.7 however this is baseline. Patient's chemistries were unremarkable. Patient's physical examination is consistent with some dehydration with dry mouth, he was given 1 L of normal saline. Patient's vital signs remained stable, on reassessment, the patient felt much better. Patient is PERC negative, I do not have any suspicion of any pulmonary embolus. Patient will follow-up outpatient, he will continue his daily medications as the day previous, he will not increase his medications. He is happy with the plan of care, he will receive a work note for today, he is instructed return for any worsening symptoms.Patient appears well, patient appears nontoxic, vital signs are stable. <Dr. Mando Hall MD - Last Filed: 07/17/22 12:24> [facility] Lab Data Labs: Laboratory Results - last 24 hr 07/17/22 07/17/22 11:40 11:40 WBC 6.7 RBC 4.32 L Hgb 12.7 L Hct 38.8 L MCV 89.8 MCH 29.4 MCHC 32.7 RDW Std Deviation 43.5 RDW Coeff of Raphael 13.2 Plt Count 288 MPV 10.8 Immature Gran % (Auto) 0.300 Neut % (Auto) 68.6 Lymph % (Auto) 20.5 Mcdonough % (Auto) 8.1 Eos % (Auto) 1.9 Baso % (Auto) 0.6 Absolute Neuts (auto) 4.6 Absolute Lymphs (auto) 1.37 Nucleated RBC % 0 Sodium 139 Potassium 3.3 L Chloride 108 H Carbon Dioxide 26.0 Anion Gap 5 BUN 7 Creatinine 0.93 Estim Creat Clear Calc 116.65 Est GFR (MDRD) Af Amer 120 Est GFR (MDRD) Non-Af 99 BUN/Creatinine Ratio 7.5 L Glucose 161 H Calcium 8.9 Radiography Diagnostic Testing: Clinical Impression(s) from Imaging Studies Chest X-Ray 07/17/22 12:03 IMPRESSION: Hyperinflation. The lungs are clear. Electronically Signed: Antonio Florez MD at 12:15 EST , Treatment and Re-Evaluation Vital Sign Attestation:: Patient was seen by me, I discussed with him about feeling somewhat lightheaded and at times he has palpitations, on exam he appears dehydrated but improved with IV fluids and he has a normal work-up in the ED including EKG and blood work. I believe he is safe for discharge. Discharge Plan Triage Chief Complaint: Palpitations ED Midlevel Provider: Mando Franz ED Provider: Mando Hall Dx/Rx/DC Orders Clinical Impression: Palpitation, Anxiety Instructions: ED Palpitations Prescriptions: No Action escitalopram oxalate 10 mg tablet 10 mg PO DAILY Label Comments: Take 1 tablet by mouth once a day bupropion HCl 300 mg tablet extended release 24 hr 300 mg PO DAILY Label Comments: Take 1 tablet by mouth every morning buprenorphine-naloxone 8-2 mg film 1.5 film sublingual DAILY Label Comments: Place 1 and 1/2 film under tongue once a day Stand Alone Forms: ED Work / School Excuse Primary Care Provider: Davie Carvajal Referrals: Davie Carvajal MD [Primary Care Provider] - Disposition Disposition: Home, Self Care
[2022-07-17] MEDS: 0.9% Normal Saline 1,000 ML 1000 ML IV (11:46)
--- NOTE | 2022-07-17 12:03 | RAD_ITS ---
STUDY: X-RAY CHEST REASON FOR EXAM: Male, 32 years old. Shortness of breath TECHNIQUE: PA and lateral views of the chest. COMPARISON: Comparison is made with prior study dated March 03, 2019. FINDINGS: EKG electrodes are seen. Hyperinflation. The lungs are clear. There is no demonstrated pleural abnormality. Normal size heart. Normal mediastinum and verona. Normal visualized pulmonary arteries. Normal visualized aortic arch and descending thoracic aorta. Normal visualized thoracic spine. Normal visualized ribs, clavicles, and shoulders. There is no demonstrated abnormality of the visualized soft tissue structures of the upper abdomen. RAD/Chest PA and Lateral IMPRESSION: Hyperinflation. The lungs are clear. Electronically Signed: Antonio Florez MD at 12:15 EST ,
[2022-07-17 12:05] LABS: Absolute Lymphocyte Count 1.37 X10^3/uL (0.83-4.51); Absolute Neutrophil Count 4.6 X10^3/uL (2.0-7.7); Basophil# 0.04 X10^3/uL; Basophil% 0.6 % (0-1); Eosinophil# 0.13 X10^3/uL; Eosinophils% 1.9 % (0-5); Hematocrit 38.8 % (40-54); Hemoglobin 12.7 g/dL (13.0-16.5); Lymphocyte # 1.37 X10^3/ul (0.83-4.51); Lymphocyte % 20.5 % (19-41); Mean Corp Hgb Conc 32.7 g/dL (32-36); Mean Corpuscular Hgb 29.4 pg (27.0-32.0); Mean Corpuscular Volume 89.8 fL (80-94); Mean Platelet Vol. 10.8 fl (6.2-12.0); Monocyte# 0.54 X10^3/uL; Monocyte% 8.1 % (0-10); NRBC Flagged by Analyzer 0 % (0-5); Neutrophil # 4.59 X10^3/uL (2.7-7.7); Neutrophil % 68.6 % (47-70); Platelet Count 288 K/mm3 (150-450); RBC Distribution Width CV 13.2 % (11.6-14.6); RBC Distribution Width SD 43.5 fl (35.1-43.9); Red Blood Count 4.32 M/mm3 (4.6-6.2); White Blood Count 6.7 K/mm3 (4.4-11.0)
[2022-07-17 12:16] LABS: Anion Gap 5 (5-15); BUN 7 mg/dL (7-18); BUN/Creat Ratio 7.5 RATIO (10-20); Calcium,Total 8.9 mg/dL (8.5-10.1); Chloride 108 mmol/L (98-107); Creatinine, Serum 0.93 mg/dL (0.70-1.30); EST Glomerular Filtration Rate 99 mL/min (>60); Est Glom Filt Rate - Afr Amer 120 mL/min (>60); Estimated Creatinine Clearance 116.65 ml/min; Glucose 161 mg/dL (74-106); Potassium 3.3 mmol/L (3.5-5.1); Sodium Level 139 mmol/L (136-145)
[2022-07-17] MEDS: Potassium Chloride Oral Tablet 20 MEQ 40 MEQ PO (12:46)
[2022-07-17 13:10] VITALS: BP 139/82; PULSE 79; RESP 14; O2SAT 97
== END 2022-07-17 13:11 | disposition home or self-care (01) ==
PROVIDERS: Nurse Practitioner; Emergency Provider Emergency Medicine; PCP Family Medicine; Visit Provider Emergency Medicine
DX: F41.9 Anxiety disorder, unspecified (principal); F17.210 Nicotine dependence, cigarettes, uncomplicated; R00.2 Palpitations; R06.02 Shortness of breath
CPT/HCPCS: 71046; 80048; 85025; 93005; 96360; 99284; J7030

== ENCOUNTER 2022-07-29 13:45 | Emergency (ER) | payer MEDICAID, SELFPAY ==
[2022-07-29 13:50] VITALS: BP 153/91; PULSE 84; RESP 14; TEMP 36.6; O2SAT 97; BMI 24.1
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
--- NOTE | 2022-07-29 14:15 | RAD_ITS ---
STUDY: X-RAY - LEFT WRIST REASON FOR EXAM: Male, 32 years old. Injury TECHNIQUE: 3 view(s) of the wrist were obtained. COMPARISON: None. FINDINGS: There is a comminuted nondisplaced fracture of the distal radial metaphysis with extension to the articular surface. Normal radiocarpal articulation. Normal distal radioulnar articulation. Normal carpal bones. Normal carpal articulations. Normal carpometacarpal articulation of the thumb. Normal second through fifth carpometacarpal articulations. Normal visualized metacarpal bones. Soft tissue swelling. RAD/Wrist min 3 Views IMPRESSION: Nondisplaced comminuted fracture of the distal radial metaphysis with extension to the articular surface. Soft tissue swelling. Electronically Signed: Antonio Florez MD at 15:07 EDT ,
== END 2022-07-29 15:42 | disposition home or self-care (01) ==
PROVIDERS: Emergency Provider Emergency Medicine; PCP Family Medicine; Visit Provider Emergency Medicine
DX: S52.572A Other intraarticular fracture of lower end of left radius, initial encounter for closed fracture (principal); F17.210 Nicotine dependence, cigarettes, uncomplicated; V23.49XA Other motorcycle driver injured in collision with car, pick-up truck or van in traffic accident, initial encounter
CPT/HCPCS: 73110; 99284

== ENCOUNTER 2022-08-05 14:05 | Day surgery (SDC) | payer MEDICAID, SELFPAY ==
[2022-08-05] VITALS (10 sets, daily range): BP systolic 130–150; BP diastolic 83–101; PULSE 65–99; RESP 16–20; TEMP 36.7–36.9; O2SAT 96–100; BMI 23.5
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
[2022-08-05] MEDS: Lactated Ringers 1,000 ML 15 ML IV ×2 (14:49→17:48)
[2022-08-05] MEDS: Cefazolin 2 GM in 0.9% Normal Saline 100 ML IV (15:45)
--- NOTE | 2022-08-05 15:51 | RAD_ITS ---
CLINICAL HISTORY: FX Date: 08/05/2022 4:35 PM Date of : 1990 Images assigned to this order were provided in conjunction with a surgical procedure performed in the operating room/procedural suite. Please see operative report for details. Fluoroscopic images: 4 Fluoroscopic time: 68.8 seconds Cumulative dose: NA, mGym2; 1.21; mGy Plate and screw fixation of the distal radius with normal alignment demonstrated. Refer to procedural note for complete description. Impressions: 1. Fluoroscopic guidance for surgical planning and confirmation. ORIF of distal radius with normal alignment. Electronically Signed: Heron Kemp MD at 1:12 EDT , RAD/Wrist 2 Views IMPRESSION: undefined
[2022-08-05] MEDS: Lidocaine 1% /Epi 1:100 (20ml) 20 ML Vial (16:57)
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
--- NOTE | 2022-08-05 17:17 | DCINST_ITS ---
Discharge Instructions Diet Discharge Diet: No restrictions Dressing / Incision Call your doctor if you observe: Shortness of breath and Chest pain Additional Dressing/Incision Instructions:: Strict elevation of operative extremity above heart for next 7 days. Ice 15 minutes on 15 minutes off. Continue ice and elevation for 7 days postoperatively. Encourage finger range of motion. No lifting pushing or pulling more than a coffee cup. Must keep splint on clean and dry. Do not stick anything inside the splint follow-up in office in 2 weeks. Do not take other medication for pain than what was prescribed and do not take more than what was prescribed. May continue your baseline medications. Follow Up Care Please Follow Up With: Adolfo Phelps DO When: 2 weeks Test Results: Test results from this visit will be discussed in further detail at your follow- up appointment, if applicable. Discharge Plan Admission Primary Reason for Your Visit: Left distal radius ORIF Attending Provider: Adolfo Phelps Primary Care Provider: Davie Carvajal Discharge Orders/Prescriptions Prescriptions: New acetaminophen [acetaminophen] 500 mg tablet 1,000 mg PO Q6H PRN Qty: 100 0RF cephalexin [cephalexin] 500 mg capsule 1,000 mg PO Q8 Qty: 4 0RF Rx Instructions: take 2 tabs at 9:00 pm and 2 tabs after 5 am when you wake up ibuprofen 800 mg tablet 800 mg PO TID PRN (Reason: pain) Qty: 60 0RF Rx Instructions: Do not take in conjunction with other NSAID. Tylenol is okay. Continued escitalopram oxalate 10 mg tablet 10 mg PO DAILY Label Comments: Take 1 tablet by mouth once a day bupropion HCl 300 mg tablet extended release 24 hr 300 mg PO DAILY Label Comments: Take 1 tablet by mouth every morning buprenorphine-naloxone 8-2 mg film 1.5 film sublingual DAILY Label Comments: Place 1 and 1/2 film under tongue once a day Discontinued naproxen 500 mg tablet 500 mg PO BID Qty: 20 0RF Referrals / Follow Up: Davie Carvajal MD [Primary Care Provider] - Disposition Disposition (needs filled in before D/C Order can be placed): Home, Self Care
[2022-08-05] MEDS: Ketorolac 30 MG/ML Syringe IV (17:41)
[2022-08-05] MEDS: Cefazolin 1 GM/50 ML BAG IV (17:59)
== END 2022-08-05 19:20 | disposition home or self-care (01) ==
LOC: SDC 14:08 → AC 14:09
PROVIDERS: PCP Family Medicine; Referring Provider Orthopaedic Surgery; Visit Provider Orthopaedic Surgery
PROC: (CPT 25609; principal; 2022-08-05 15:10)
DX: S52.572A Other intraarticular fracture of lower end of left radius, initial encounter for closed fracture (principal); V03.99XA Pedestrian with other conveyance injured in collision with car, pick-up truck or van, unspecified whether traffic or nontraffic accident, initial encounter; F17.210 Nicotine dependence, cigarettes, uncomplicated
CPT/HCPCS: 25609; 01830; 73100; 76000; C1713; J7120; J2405

== ENCOUNTER 2022-08-19 12:16 | Emergency (ER) | payer MEDICAID, SELFPAY ==
[2022-08-19 12:17] VITALS: BP 135/80; PULSE 73; RESP 18; TEMP 37; O2SAT 97; BMI 22.9
--- NOTE | 2022-08-19 12:28 | EDS_ITS ---
HPI History of Present Illness Chief Complaint: Back Detail of Chief Complaint: Back pain and cough Informant: patient Narrative Narrative: Patient presents to the emergency department complaint of back pain that started few days ago. Patient denies any trauma. He had mild discomfort yesterday but that he fell in the shower when he slipped. He did hit his head and does not know if he lost consciousness but remembers people at the [employer] knocking on the door. Patient complaining of worse pain in his low back as he did go to work after the fall and thinks he may have exacerbated his back by doing some lifting. Patient recently had surgery on his left wrist has not been able to use his left arm. Also cough x3 to 4 days. He took a COVID test that was -2 days ago. He denies fever. Cough mostly nonproductive. Patient denies any pain rating down his legs. He denies weakness to extremities. He denies change in bowel or bladder function. [facility] Medical History (Updated 08/19/22 @ 13:[address] Iris Rivers, ) Anxiety Hepatitis History of irregular heartbeat Smoker Substance abuse Home Medications buprenorphine 8 mg-naloxone 2 mg sublingual film 1.5 film sublingual DAILY 07/17/22 [History Last Taken 08/05/22 09:00] bupropion HCl 300 mg 24 hr tablet, extended release 300 mg PO DAILY 07/17/22 [History Last Taken Unknown] escitalopram oxalate 10 mg tablet 10 mg PO DAILY 07/17/22 [History Last Taken Unknown] acetaminophen 500 mg tablet 1,000 mg PO Q6H PRN #100 tabs 08/05/22 [Rx Last Taken Unknown] ibuprofen 800 mg tablet 800 mg PO TID PRN pain #60 tabs 08/05/22 [Rx Last Taken Unknown] benzonatate 200 mg capsule 200 mg PO TID PRN cough #20 caps 08/19/22 [Rx Last Taken Unknown] cyclobenzaprine 10 mg tablet 10 mg PO TID PRN Muscle Spasm #20 TABLETS 08/19/22 [Rx Last Taken Unknown] naproxen 500 mg tablet 500 mg PO BID #14 tabs 08/19/22 [Rx Last Taken Unknown] Allergy/AdvReac Type Severity Reaction Status Date / Time ranitidine HCl [From Zantac] Allergy Other Verified 08/19/22 12:19 tramadol AdvReac Mild Other Verified 08/19/22 12:19 Social History Smoking Status: Current every day smoker tobacco type: cigarettes ROS ROS ED Review of Systems ROS Unobtainable: other Constitutional Constitutional ED: Reports lethargy; Denies chills, fever(s), sweats or weight loss Eyes Eyes: Denies blurry vision, change in vision or diplopia ENT ENT ED: Denies rhinorrhea or sore throat Cardiovascular Cardiovascular: Denies chest pain, orthopnea or racing heartbeat Respiratory/Chest Respiratory/Chest: Reports cough; Denies dyspnea, dyspnea on exertion, orthopnea or sputum Gastrointestinal Gastrointestinal: Denies abdominal pain, diarrhea, nausea or vomiting Genitourinary Genitourinary ED: Denies dysuria, hematuria or urinary frequency Musculoskeletal Musculoskeletal: Reports back pain; Denies arthralgias, myalgias or neck pain Integumentary Denies abscess, Abrasions or rash Neurologic Neurologic: Denies headache(s) or weakness Psychiatric Psychiatric: Denies anxiety, depression or suicidal thoughts Endocrine Endocrinology: Denies polydipsia, polyphagia or polyuria Hematologic/Lymphatic Hematologic/Lymphatic: Denies easy bleeding, easy bruising or lymphadenopathy Allergic/Immunologic Allergic/Immunologic ED: Denies mouth swelling, tongue swelling or urticaria EXAM Physical Exam Const Vital Signs: 08/19/22 12:17 Temperature 98.6 F Temperature Source Temporal Pulse Rate 73 Respiratory Rate 18 Blood Pressure 135/80 H Blood Pressure Mean 98 Pulse Ox 97 Oxygen Delivery Method Room Air Positive well nourished and well developed General Appearance ED: well developed and NAD HEENT Reports TM's clear and moist mucous membranes HEENT Narrative: No evidence of trauma to his head. No hemotympanum. normocephalic and atraumatic; Negative for trauma or tenderness Tympanic Membrane ED: Yes TM's clear Eyes PERRL and EOMs intact bilaterally General Eye ED: Negative for pale conjunctiva or scleral icterus Neck no lymphadenopathy, supple and no JVD General: Negative for tenderness Chest Wall inspection of chest normal and palpation of chest normal Chest: Negative for tenderness Resp normal respiratory effort and clear to auscultation bilaterally Effort and Inspection: Negative for respiratory distress or pain with movement Auscultation: Negative for rhonchi, wheezes or diminished lung sounds Cardio regular rate, regular rhythm, S1 normal heart sound, S2 normal heart sound and no murmurs Peripheral Pulses: pulses 2+ throughout GI normal to inspection, nondistended, normoactive bowel sounds, soft to palpation, non-tender, non-distended and no masses Back/Spine no CVA tenderness Back/Spine Narrative: Mild tenderness to palpation over the lower lumbar spine over the area of L4 and L5. There is no ecchymosis or bruising. No bony step-offs. Negative straight leg raises. Deep tendon reflexes plus 2 out of 4 bilaterally at the patella Achilles. Patient has normal L5 extension bilaterally. Extremity normal to inspection General Extremety ED: Negative for edema General Extremity: Negative for edema Neuro oriented x3, CN's II-XII intact bilaterally, no sensory deficits noted and gait normal Sensorium / Orientation: awake, alert, oriented to person, oriented to place and oriented to time Motor Exam: strength 5/5 throughout and strength abnormal Psych mental status grossly normal Skin no rashes or lesions noted and no wounds MDM MDM MDM Narrative Medical decision making narrative: I suspect clinically patient has a viral URI. Patient I suspect likely has a back contusion or back strain. We will write him for naproxen and Flexeril. Advised to follow-up with primary care physician 5 to 7 days. Patient will be given a prescription for Tessalon Perles as well for his cough. Radiography Diagnostic Testing: Clinical Impression(s) from Imaging Studies Chest X-Ray 08/19/22 12:30 IMPRESSION: No acute cardiopulmonary process identified. Electronically Signed: Yaneth Godinez MD at 12:58 EDT , Lumbar Spine X-Ray 08/19/22 12:30 IMPRESSION: No acute fracture or dislocation identified in the lumbar spine. Electronically Signed: Yaneth Godinez MD at 13:04 EDT , 1 view chest x-ray obtained interpreted by myself as no evidence of infiltrate or acute disease process. Radiology in agreement. 2 view x-rays of lumbar spine obtained interpreted by myself no acute fractures or dislocations. Radiology in agreement. Discharge Plan Triage Chief Complaint: Back ED Provider: Iris Rivres Dx/Rx/DC Orders Clinical Impression: Viral URI, Back contusion, Lumbar strain Instructions: ED Back Sprain/Strain, ED Back Contusion, ED URI, Viral, No Abx (Adult) Prescriptions: New cyclobenzaprine [cyclobenzaprine] 10 mg tablet 10 mg PO TID PRN (Reason: Muscle Spasm) Qty: 20 0RF naproxen 500 mg tablet 500 mg PO BID Qty: 14 0RF benzonatate 200 mg capsule 200 mg PO TID PRN (Reason: cough) Qty: 20 0RF No Action escitalopram oxalate 10 mg tablet 10 mg PO DAILY Label Comments: Take 1 tablet by mouth once a day bupropion HCl 300 mg tablet extended release 24 hr 300 mg PO DAILY Label Comments: Take 1 tablet by mouth every morning buprenorphine-naloxone 8-2 mg film 1.5 film sublingual DAILY Label Comments: Place 1 and 1/2 film under tongue once a day acetaminophen [acetaminophen] 500 mg tablet 1,000 mg PO Q6H PRN Qty: 100 0RF ibuprofen 800 mg tablet 800 mg PO TID PRN (Reason: pain) Qty: 60 0RF Rx Instructions: Do not take in conjunction with other NSAID. Tylenol is okay. Primary Care Provider: Davie Carvajal Referrals: Davie Carvajal MD [Primary Care Provider] - 5-7 Days Disposition Disposition: Home, Self Care
--- NOTE | 2022-08-19 12:30 | RAD_ITS ---
HISTORY: cough. TECHNIQUE: XR Chest 1 View. COMPARISON: 07/17/2022. FINDINGS: CARDIOMEDIASTINAL BORDERS: Cardiac silhouette within normal limits in size. Mediastinal contour unremarkable. LUNGS: Radiographically clear. PLEURA: No pleural effusion or pneumothorax seen. OSSEOUS STRUCTURES: Unremarkable. RAD/Chest 1 View (Portable) IMPRESSION: No acute cardiopulmonary process identified. Electronically Signed: Yaneth Godinez MD at 12:58 EDT ,
--- NOTE | 2022-08-19 12:30 | RAD_ITS ---
HISTORY: back pain, fall. TECHNIQUE: XR Spine Lumbar 2 or 3 Views. COMPARISON: None. FINDINGS: VERTEBRAE: Vertebral body heights preserved. Posterior elements appear intact. ALIGNMENT: No significant anterior or posterior subluxation. INTERVERTEBRAL DISCS: Disc spaces maintained. RAD/Lumbar Spine 2 or 3 Views IMPRESSION: No acute fracture or dislocation identified in the lumbar spine. Electronically Signed: Yaneth Godinez MD at 13:04 EDT ,
== END 2022-08-19 13:29 | disposition home or self-care (01) ==
PROVIDERS: Emergency Provider Emergency Medicine; PCP Family Medicine; Visit Provider Emergency Medicine
DX: J06.9 Acute upper respiratory infection, unspecified (principal); S20.229A Contusion of unspecified back wall of thorax, initial encounter; S39.012A Strain of muscle, fascia and tendon of lower back, initial encounter; F17.210 Nicotine dependence, cigarettes, uncomplicated; W01.10XA Fall on same level from slipping, tripping and stumbling with subsequent striking against unspecified object, initial encounter
CPT/HCPCS: 71045; 72100; 99282

== ENCOUNTER 2022-12-04 10:01 | Inpatient (IN) | payer MEDICAID, SELFPAY ==
[2022-12-04] VITALS (18 sets, daily range): BP systolic 116–144; BP diastolic 73–98; PULSE 70–94; RESP 11–20; TEMP 36.4–36.9; O2SAT 96–99; BMI 20.4; BMI 20.2
--- NOTE | 2022-12-04 10:24 | EKG12_ITS ---
Test Reason : REPEAT Blood Pressure : / mmHG Vent. Rate : 089 BPM Atrial Rate : 089 BPM P-R Int : 136 ms QRS Dur : 094 ms QT Int : 372 ms P-R-T Axes : 065 033 051 degrees QTc Int : 452 ms Normal sinus rhythm Normal ECG Confirmed by IAN CIFUENTES, JESÚS ([id number]), editorial assistant PHILLY NEWMAN ([id number]) on 12/05/2022 9:15:01 AM Referred By: Confirmed By:JESÚS SOSA MD
--- NOTE | 2022-12-04 10:27 | EX.ED.VIS.PS ---
HPI HPI - Psych History of Present Illness Chief Complaint: Suicidal Informant: patient Narrative Narrative: Patient is a 32-year-old male with history of anxiety, substance abuse, hepatitis, and tobacco use presenting after an intentional overdose/suicide attempt. Patient states he just feels lost. Around 8 AM this morning he took anywhere between 7-10 Wellbutrin as well as 7-10 doses of Suboxone. Patient states he did it as a suicide attempt. 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 Patient states the empty bottles are at home. He is a bit vague about how much he actually took. He states is no one at home that can verify. Patient denies taking any other medications or coingestions. He denies any current alcohol or illicit drug use. Patient states he feels fine and has no other complaints at this time. [facility] Medical History Anxiety Hepatitis History of irregular heartbeat Smoker Substance abuse Home Medications buprenorphine 8 mg-naloxone 2 mg sublingual film 1.5 film sublingual DAILY 07/17/22 [History Last Taken 08/05/22 09:00] bupropion HCl 300 mg 24 hr tablet, extended release 300 mg PO DAILY 07/17/22 [History Last Taken Unknown] escitalopram oxalate 10 mg tablet 10 mg PO DAILY 07/17/22 [History Last Taken Unknown] acetaminophen 500 mg tablet 1,000 mg (2 x 500 mg) PO Q6H PRN #100 tabs 08/05/22 [Rx Last Taken Unknown] ibuprofen 800 mg tablet 800 mg PO TID PRN pain #60 tabs 08/05/22 [Rx Last Taken Unknown] benzonatate 200 mg capsule 200 mg PO TID PRN cough #20 caps 08/19/22 [Rx Last Taken Unknown] cyclobenzaprine 10 mg tablet 10 mg PO TID PRN Muscle Spasm #20 TABLETS 08/19/22 [Rx Last Taken Unknown] naproxen 500 mg tablet 500 mg PO BID #14 tabs 08/19/22 [Rx Last Taken Unknown] Allergy/AdvReac Type Severity Reaction Status Date / Time ranitidine HCl [From Zantac] Allergy Other Verified 12/04/22 10:02 tramadol AdvReac Mild Other Verified 12/04/22 10:02 Social History Smoking Status: Current every day smoker tobacco type: cigarettes ROS ROS ED Review of Systems ROS Unobtainable: due to mental condition Constitutional Constitutional ED: Denies chills or fever(s) Eyes Eyes: Denies blurry vision Cardiovascular Cardiovascular: Denies chest pain Respiratory/Chest Respiratory/Chest: Denies dyspnea Gastrointestinal Gastrointestinal: Denies nausea or vomiting Psychiatric Psychiatric: Reports depression, suicidal ideation and suicidal thoughts EXAM Physical Exam Const Vital Signs: 12/04/22 10:03 12/04/22 11:24 12/04/22 12:33 Temperature 98.4 F Temperature Source Oral Pulse Rate 94 88 85 Respiratory Rate 20 H 16 11 L Blood Pressure 136/98 H 137/94 H 144/95 H Blood Pressure Mean 110 108 111 Pulse Ox 97 96 98 Oxygen Delivery Method Room Air Room Air Room Air Positive well nourished and well developed General Appearance ED: well developed and NAD HEENT Reports moist mucous membranes normocephalic and atraumatic Eyes PERRL and EOMs intact bilaterally General Eye ED: Negative for scleral icterus Neck supple and no JVD Resp normal respiratory effort and clear to auscultation bilaterally Cardio no murmurs Rate: regular rate Rhythm: regular rhythm GI non-tender and non-distended Palpation: soft Back/Spine no CVA tenderness Extremity normal to inspection Neuro oriented x3 Sensorium / Orientation: alert Motor Exam: Negative for general weakness Psych cooperative and denies homicidal ideation Appearance: disheveled Attitude: withdrawn Activity / Motor Behavior: avoids eye contact Speech: normal speech Mood & Affect: depressed and tearful Thought Process: normal thought process Thought Content: suicidality Attention / Concentration: attention grossly intact Insight: fair Judgement: poor Skin Skin Narrative: Multiple tattoos Lesions: no lesions Rashes: no rashes MDM MDM MDM Narrative Medical decision making narrative: Patient is evaluated for intentional overdose of Wellbutrin as well as Suboxone. The exact amount of Wellbutrin he took is not clear but I believe it was anywhere between 7 and 20 pills. Patient does not have an obvious toxidrome on evaluation. He is quite depressed and tearful however. [place] slip was filled out as patient will require further psychiatric care. Case is discussed with poison control and medical screening is obtained. Poison control states that there is a risk of delayed onset seizure and he will require at least 24 hours of observation. If he does have a seizure and less likely to go into status epilepticus and first-line treatment be diazepam followed by second line treatment of phenobarbital or propofol. There is also risk of QT prolongation and there should be close monitoring of the patient's magnesium, potassium, calcium to watch for risk of torsades. Recommend serial EKGs. Finally they recommend that if patient develops any QRS widening we should call them back to speak with the profile stitching machine operator. Can try bicarb for this. Patient remains hemodynamically stable in the ER but will be admitted to the ICU for close monitoring in event of sudden clinical deterioration. Case is discussed admitting physician, with Dr. Cassidy. I did relay the recommendations from poison control to admitting physician. Lab Data Attestation: I reviewed the patient's lab results. Labs: Laboratory Results - last 24 hr 12/04/22 12/04/22 10:15 10:38 WBC 8.7 RBC 4.47 L Hgb 12.6 L Hct 39.6 L MCV 88.6 MCH 28.2 MCHC 31.8 L RDW Std Deviation 46.1 H RDW Coeff of Raphael 14.4 Plt Count 325 MPV 10.4 Immature Gran % (Auto) 0.600 Neut % (Auto) 65.8 Lymph % (Auto) 22.1 [place] % (Auto) 8.7 Eos % (Auto) 2.2 Baso % (Auto) 0.6 Absolute Neuts (auto) 5.7 Absolute Lymphs (auto) 1.91 Nucleated RBC % 0 Sodium 139 Potassium 3.7 Chloride 106 Carbon Dioxide 25.0 Anion Gap 8 BUN 9 Creatinine 1.01 Estim Creat Clear Calc 97.70 Est GFR (MDRD) Af Amer 109 Est GFR (MDRD) Non-Af 90 BUN/Creatinine Ratio 8.9 L Glucose 100 Calcium 8.8 Magnesium 2.3 Total Bilirubin 0.30 AST 40 H ALT 63 H Alkaline Phosphatase 60 Total Protein 7.1 Albumin 3.3 Globulin 3.8 Albumin/Globulin Ratio 0.9 Salicylates 2.1 L Urine Opiates Screen NEGATIVE Urine Methadone Screen NEGATIVE Acetaminophen < 2.0 L Ur Barbiturates Screen NEGATIVE Ur Phencyclidine Scrn NEGATIVE Ur Amphetamines Screen NEGATIVE MDMA (Ecstasy) Screen POSITIVE H U Benzodiazepines Scrn NEGATIVE Urine Cocaine Screen NEGATIVE U Cannabinoids Screen NEGATIVE Ur Drug Screen Comment Ethyl Alcohol < 3.0 Rhythm Strip Rhythm Strip: Sinus Tach Rate: 101 Ectopy: None EKG Initial EKG: Attestation: I personally reviewed and interpreted this EKG as follows: Interpretation: Sinus Tachycardia Comments: Sinus tachycardia rate of 101 bpm Normal axis Normal intervals Normal ST segments Of the sinus tachycardia, no change compared to prior EKG Follow-up EKG: Attestation: I personally reviewed and interpreted this EKG as follows: Interpretation: Sinus Rhythm Comments: Normal sinus rhythm at a rate of 89 bpm Normal axis Normal intervals Normal ST segments No change in QRS or QTc compared to prior EKG Management Discussion w/another healthcare provider: Hospitalist and Other (Poison control) Critical Care Time Critical Care Time: Yes Critical care time (excluding procedures): 30-74 minutes (32), Including time spent: (Discussion with poison control) and Arranging Admission or Transfer Discharge Plan Triage Chief Complaint: Suicidal Other Complaint: Overdose ED Provider: Alma Pardo Dx/Rx/DC Orders Clinical Impression: Intentional overdose, Depression with suicidal ideation Prescriptions: No Action escitalopram oxalate 10 mg tablet 10 mg PO DAILY Patient Comments: Take 1 tablet by mouth once a day bupropion HCl 300 mg tablet extended release 24 hr 300 mg PO DAILY Patient Comments: Take 1 tablet by mouth every morning buprenorphine-naloxone 8-2 mg film 1.5 film sublingual DAILY Patient Comments: Place 1 and 1/2 film under tongue once a day acetaminophen [acetaminophen] 500 mg tablet 1,000 mg PO Q6H PRN Qty: 100 0RF ibuprofen 800 mg tablet 800 mg PO TID PRN (Reason: pain) Qty: 60 0RF Rx Instructions: Do not take in conjunction with other NSAID. Tylenol is okay. cyclobenzaprine [cyclobenzaprine] 10 mg tablet 10 mg PO TID PRN (Reason: Muscle Spasm) Qty: 20 0RF naproxen 500 mg tablet 500 mg PO BID Qty: 14 0RF benzonatate 200 mg capsule 200 mg PO TID PRN (Reason: cough) Qty: 20 0RF Primary Care Provider: Davie Carvajal Referrals: Davie Carvajal MD [Primary Care Provider] - Disposition Disposition: Acute Care [facility]
[2022-12-04 10:46] LABS: Amphetamine Urine VISTA NEGATIVE (<1000 ng/mL); Barbiturate Urine VISTA NEGATIVE (< 200 ng/mL); Benzodiazepine Urine VISTA NEGATIVE (< 200 ng/mL); Cocaine Urine VISTA NEGATIVE (< 300 ng/mL); Ecstacy Urine VISTA POSITIVE (< 500 ng/mL); Methadone Urine VISTA NEGATIVE (< 300 ng/mL); PCP Urine VISTA NEGATIVE (< 25 ng/mL); THC Urine VISTA NEGATIVE (< 50 ng/mL); Vista UDS pH Range 6
[2022-12-04 10:59] LABS: Absolute Lymphocyte Count 1.91 X10^3/uL (0.83-4.51); Absolute Neutrophil Count 5.7 X10^3/uL (2.0-7.7); Basophil# 0.05 X10^3/uL; Basophil% 0.6 % (0-1); Eosinophil# 0.19 X10^3/uL; Eosinophils% 2.2 % (0-5); Hematocrit 39.6 % (40-54); Hemoglobin 12.6 g/dL (13.0-16.5); Lymphocyte # 1.91 X10^3/ul (0.83-4.51); Lymphocyte % 22.1 % (19-41); Mean Corp Hgb Conc 31.8 g/dL (32-36); Mean Corpuscular Hgb 28.2 pg (27.0-32.0); Mean Corpuscular Volume 88.6 fL (80-94); Mean Platelet Vol. 10.4 fl (6.2-12.0); Monocyte# 0.75 X10^3/uL; Monocyte% 8.7 % (0-10); NRBC Flagged by Analyzer 0 % (0-5); Neutrophil # 5.71 X10^3/uL (2.7-7.7); Neutrophil % 65.8 % (47-70); Platelet Count 325 K/mm3 (150-450); RBC Distribution Width CV 14.4 % (11.6-14.6); RBC Distribution Width SD 46.1 fl (35.1-43.9); Red Blood Count 4.47 M/mm3 (4.6-6.2); White Blood Count 8.7 K/mm3 (4.4-11.0)
[2022-12-04 11:16] LABS: ALB/GLOB Ratio 0.9 RATIO (0.9-2.4); AST(SGOT) 40 U/L (15-37); Alanine Aminotransfer ALT/SGPT 63 U/L (16-61); Albumin, Serum 3.3 g/dL (3.2-5.0); Alkaline Phosphatase 60 U/L (45-117); Anion Gap 8 (5-15); BUN 9 mg/dL (7-18); BUN/Creat Ratio 8.9 RATIO (10-20); Calcium,Total 8.8 mg/dL (8.5-10.1); Chloride 106 mmol/L (98-107); Creatinine, Serum 1.01 mg/dL (0.70-1.30); EST Glomerular Filtration Rate 90 mL/min (>60); Est Glom Filt Rate - Afr Amer 109 mL/min (>60); Globulin 3.8 g/dL (2.2-4.2); Glucose 100 mg/dL (74-106); Potassium 3.7 mmol/L (3.5-5.1); Protein, Total 7.1 g/dL (6.4-8.2); Sodium Level 139 mmol/L (136-145)
[2022-12-04 11:36] LABS: Alcohol, Blood (Medical)-Serum < 3.0 mg/dL
[2022-12-04 11:39] LABS: Magnesium 2.3 mg/dL (1.6-2.6)
[2022-12-04 11:47] LABS: Acetaminophen (Tylenol) Level < 2.0 ug/mL (10.0-30.0); Salicylate 2.1 mg/dL (2.8-20.0)
--- NOTE | 2022-12-04 12:01 | EKG12_ITS ---
Test Reason : Blood Pressure : / mmHG Vent. Rate : 101 BPM Atrial Rate : 101 BPM P-R Int : 150 ms QRS Dur : 096 ms QT Int : 350 ms P-R-T Axes : 073 061 060 degrees QTc Int : 453 ms Sinus tachycardia Otherwise normal ECG Confirmed by IAN CIFUENTES, JESÚS ([id number]), news copy editor PHILLY NEWMAN ([id number]) on 12/05/2022 9:15:11 AM Referred By: SIMEON Confirmed By:JESÚS SOSA MD
--- NOTE | 2022-12-04 12:25 | ED.RN ---
Patient ambulatory to bathroom and returned to room.
--- NOTE | 2022-12-04 12:58 | CM.ED ---
Social Work SW met with MD Pardo to review patient's presenting symptoms and safety concerns. reports poison control is recommending patient being monitored for 24 hrs; MD has pink slipped patient at this time. SW/[facility] Crisis to evaluate once patient is medically cleared tomorrow. SW met with patient and introduced herself and role as [facility] SW. Patient adamant he did not attempt suicide, explaining he took more of his medication than he should have to get high. Patient states I know my body, I am fine and I have to go to work tomorrow. SW provided emotional support and educated patient on being pink slipped due to safety concerns. Patient became tearful and inquired if he could go home to lock up at least. SW explained patient would be unable to leave due to pink slip and encouraged him to talk with friends, family or his PO about locking up his house. 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 Patient voiced understanding. Plan: patient being admitted to [facility] per poison control recommendation due to OD; patient to be evaluated for inpatient [facility] once he is medically cleared [facility]
--- NOTE | 2022-12-04 13:18 | NURSING ---
DR MILLIGAN IN ER
--- NOTE | 2022-12-04 13:22 | NURSING ---
ICU SRINI INTENTIONAL OVERDOSE
[2022-12-04 13:27] LABS: Bacteria 0 SEEN /hpf (None Seen); Mucous, Urine 0 SEEN /hpf (<or=2+); Red Blood Cells-Urine 0 SEEN /hpf (0-5); Squamous Epithelial Cells - UA 0 SEEN /hpf (0-5); White Blood Cells 0 SEEN /hpf (0-5)
[2022-12-04 13:32] LABS: Color, Urine Yellow (Yellow); Glucose, Dipstick Normal (Normal); Ketone-Dipstick Negative (Negative); Leukocyte Esterase-Dipstick Negative /ul (Negative); Nitrite-Dipstick Negative (Negative); Occult Blood-Urine Negative /ul (Negative); Protein-Dipstick 15 mg/dl (Negative); Urine Bilirubin Dipstick Negative (Negative); Urine Clarity Clear (Clear); Urine Urobilinogen Normal (Normal)
[2022-12-04 13:38] LABS: Phosphorus 2.4 mg/dL (2.5-4.9)
--- NOTE | 2022-12-04 13:38 | PCM.HP.STD ---
HPI - General General Date of Admission: 12/04/22 Date of Service: 12/04/22 Chief Complaint: Medication overdose suicidal attempt HPI Narrative MISAEL NARANJO, is a 32 M with history of substance use and hepatitis came to ED for intentional overdose and suicidal attempt. Patient stated he felt very depressed yesterday in [place] and he took 5 tablets of each Suboxone and Wellbutrin. To the ER physician he took 7 to 10 tablets of each. Patient has history of methamphetamine dependence and relapsed about 1 month ago. Patient on multiple medications including Suboxone, bupropion, and escitalopram Patient told his worldwide chief creative officer therefore he was brought by EMS to ED. Patient denies drinking alcohol or current substance use including opioids amphetamine, bath salt or ecstasy. In ED, patient is hemodynamically stable. Twelve-lead EKG was done and is normal sinus rhythm 89 bpm, QTc 453 ms. Urine tox screen was negative. Alcohol and acetaminophen level normal. Salicylate 2.1. ED physician called poison center and we agreed that there is risk of delayed seizure and risk of status epilepticus. If he does get seizure first-line of treatment will be diazepam followed by second line phenobarbital or propofol. Electrolytes were checked. Serum magnesium, potassium, sodium, calcium and bicarb are in normal limit Patient himself stated that he is feeling fine and does not know why he is getting admitted even after repeated telling by myself and ED physician that he needs monitoring for drug overdose. Patient is pink slipped in ED. [facility] Medical History Anxiety Hepatitis History of irregular heartbeat Smoker Substance abuse Home Medications buprenorphine 8 mg-naloxone 2 mg sublingual film 1.5 film sublingual DAILY 07/17/22 [History Last Taken 08/05/22 09:00] bupropion HCl 300 mg 24 hr tablet, extended release 300 mg PO DAILY 07/17/22 [History Last Taken Unknown] escitalopram oxalate 10 mg tablet 10 mg PO DAILY 07/17/22 [History Last Taken Unknown] acetaminophen 500 mg tablet 1,000 mg (2 x 500 mg) PO Q6H PRN #100 tabs 08/05/22 [Rx Last Taken Unknown] ibuprofen 800 mg tablet 800 mg PO TID PRN pain #60 tabs 08/05/22 [Rx Last Taken Unknown] benzonatate 200 mg capsule 200 mg PO TID PRN cough #20 caps 08/19/22 [Rx Last Taken Unknown] cyclobenzaprine 10 mg tablet 10 mg PO TID PRN Muscle Spasm #20 TABLETS 08/19/22 [Rx Last Taken Unknown] naproxen 500 mg tablet 500 mg PO BID #14 tabs 08/19/22 [Rx Last Taken Unknown] Allergy/AdvReac Type Severity Reaction Status Date / Time ranitidine HCl [From Zantac] Allergy Other Verified 12/04/22 10:02 tramadol AdvReac Mild Other Verified 12/04/22 10:02 Social History Smoking Status: Current every day smoker tobacco type: cigarettes ROS ROS Narrative 14 system ROS unobtainable as patient is encephalopathic with abnormal behavior due to drug overdose Review of Systems ROS Unobtainable: due to encephalopathy and due to mental condition Vital Signs Vital Signs Vital Signs: 12/04/22 10:03 12/04/22 11:24 12/04/22 12:33 Temperature 98.4 F Temperature Source Oral Pulse Rate 94 88 85 Respiratory Rate 20 H 16 11 L Blood Pressure 136/98 H 137/94 H 144/95 H Blood Pressure Mean 110 108 111 Pulse Ox 97 96 98 Oxygen Delivery Method Room Air Room Air Room Air 12/04/22 13:22 Temperature 98 F Temperature Source Oral Pulse Rate 85 Respiratory Rate 18 Blood Pressure 133/93 H Blood Pressure Mean 106 Pulse Ox 99 Oxygen Delivery Method Room Air Weight Weight: 146 lb 6.191 oz Body Mass Index (BMI) 20.4 Physical Exam Narrative General: Alert, awake oriented x3, Cooperative HEENT: Atraumatic, PERRLA, EOMI, Normocephalic Oral: No Gingival or Mucosal Lesions/ Ulcerations Neck: Supple, No JVD, Negative Carotid Bruits Lungs: Air entry diminished in bilateral lung bases. No crepitation/rhonchi Cardiovascular: Regular rate, Regular Rhythm, Normal S1, Normal S2, No murmurs Abdomen: Bowel Sounds Present, Soft, Non Tender, Non-Distended : No renal angle tenderness. No suprapubic tenderness. Extremities: No edema, Capillary Refill Less than 3 Seconds Skin: No rashes, No breakdown Musculoskeletal: No Tenderness to Palpation of Joints or Extremities Neurological: Limited understanding, reasons for admission. Cranial nerves II-XII grossly intact, DTR 2+/4 and Symmetrical, Neuro grossly intact Psych/Mental Status: Restless, unexpected emotional burst sometimes happy and sometimes tearful Results Lab / Micro Data 12/04/22 10:38 12/04/22 10:38 Labs: Laboratory Results - last 24 hr 12/04/22 10:15: Urine Opiates Screen NEGATIVE, Urine Methadone Screen NEGATIVE, Ur Barbiturates Screen NEGATIVE, Ur Phencyclidine Scrn NEGATIVE, Ur Amphetamines Screen NEGATIVE, MDMA (Ecstasy) Screen POSITIVE H, U Benzodiazepines Scrn NEGATIVE, Urine Cocaine Screen NEGATIVE, U Cannabinoids Screen NEGATIVE, Ur Drug Screen Comment 12/04/22 10:38: WBC 8.7, RBC 4.47 L, Hgb 12.6 L, Hct 39.6 L, MCV 88.6, MCH 28.2, MCHC 31.8 L, RDW Std Deviation 46.1 H, RDW Coeff of Raphael 14.4, Plt Count 325, MPV 10.4, Immature Gran % (Auto) 0.600, Neut % (Auto) 65.8, Lymph % (Auto) 22.1, Coleman % (Auto) 8.7, Eos % (Auto) 2.2, Baso % (Auto) 0.6, Absolute Neuts (auto) 5.7, Absolute Lymphs (auto) 1.91, Nucleated RBC % 0, Sodium 139, Potassium 3.7, Chloride 106, Carbon Dioxide 25.0, Anion Gap 8, BUN 9, Creatinine 1.01, Estim Creat Clear Calc 97.70, Est GFR (MDRD) Af Amer 109, Est GFR (MDRD) Non-Af 90, BUN/Creatinine Ratio 8.9 L, Glucose 100, Calcium 8.8, Phosphorus 2.4 L, Magnesium 2.3, Total Bilirubin 0.30, AST 40 H, ALT 63 H, Alkaline Phosphatase 60, Total Protein 7.1, Albumin 3.3, Globulin 3.8, Albumin/Globulin Ratio 0.9, Salicylates 2.1 L, Acetaminophen < 2.0 L, Ethyl Alcohol < 3.0 Micro: Microbiology 12/04/22 10:46 Nasal Secretion SARS-CoV-2 Antigen (Rapid) - Final Rhythm Strip Rhythm Strip: Sinus Tach Rate: 101 Ectopy: None Assessment & Plan Assessment/Plan (1) Depression with suicidal ideation: (2) Intentional overdose: QUALIFIERS: Encounter type: initial encounter Qualified Code(s): T50.902A - Poisoning by unspecified drugs, medicaments and biological substances, intentional self-harm, initial encounter PLAN: Plan This 32-year-old gentleman is being admitted for intentional drug overdose for suicidal ideation and intention. 1. Drug overdose with suicidal ideation/intention: Patient denies prior suicidal attempt. Exact quantity of bupropion and Suboxone is unclear as he tells a different quantities to me and ED physician. Patient is being admitted in ICU as per poison control recommendation. Liver chemistry shows mildly elevated ALT and AST. Total bili and alkaline phosphatase normal. Serum phosphorus ordered. Twelve-lead EKG daily a.m. to monitor for arrhythmia/QT prolongation. If patient gets seizure, benzodiazepine/Ativan is ordered. Seizure precaution. When patient is stable for 24 hours will need crisis management team to evaluate for inpatient psych facility placement 2. Anxiety depression and history of methamphetamine use in the past and relapse a month ago: Patient states currently does not use methamphetamine. Hold antidepressant medications. 3. Chronic smoking: Patient started smoking in teenage but currently smokes half pack per day. Do not give nicotine patch as it has potential for seizure. DVT prophylaxis low risk. Charges/Coding Visit Charges Inpatient E&M: 44772 Init Hosp L3
--- NOTE | 2022-12-04 13:44 | NURSING ---
CV ICU 202
--- NOTE | 2022-12-04 13:51 | ED.RN ---
Report to ICU.
[2022-12-04] MEDS: Pantoprazole Sodium 40 MG Tablet PO (15:24)
[2022-12-04] MEDS: KCL 20MEQ in 0.9% NS 20 MEQ/1,000 ML IV.SOLN. 100 MEQ IV (15:26)
[2022-12-04] MEDS: 0.9% Saline Lock 10 ML Syringe IV (15:27)
[2022-12-05] VITALS (9 sets, daily range): BP systolic 106–153; BP diastolic 63–88; PULSE 56–81; RESP 13–55; TEMP 36.6–37.1; O2SAT 97–98; BMI 20.3
[2022-12-05] MEDS: KCL 20MEQ in 0.9% NS 20 MEQ/1,000 ML IV.SOLN. 100 MEQ IV (00:32)
[2022-12-05 03:59] LABS: Absolute Lymphocyte Count 1.99 X10^3/uL (0.83-4.51); Absolute Neutrophil Count 4.5 X10^3/uL (2.0-7.7); Basophil# 0.05 X10^3/uL; Basophil% 0.6 % (0-1); Eosinophil# 0.51 X10^3/uL; Eosinophils% 6.4 % (0-5); Hematocrit 38.2 % (40-54); Hemoglobin 11.9 g/dL (13.0-16.5); Lymphocyte # 1.99 X10^3/ul (0.83-4.51); Lymphocyte % 25.2 % (19-41); Mean Corp Hgb Conc 31.2 g/dL (32-36); Mean Corpuscular Hgb 28.1 pg (27.0-32.0); Mean Corpuscular Volume 90.3 fL (80-94); Mean Platelet Vol. 10.4 fl (6.2-12.0); Monocyte# 0.83 X10^3/uL; Monocyte% 10.5 % (0-10); NRBC Flagged by Analyzer 0 % (0-5); Neutrophil # 4.51 X10^3/uL (2.7-7.7); Platelet Count 299 K/mm3 (150-450); RBC Distribution Width CV 14.7 % (11.6-14.6); RBC Distribution Width SD 48.8 fl (35.1-43.9); Red Blood Count 4.23 M/mm3 (4.6-6.2); White Blood Count 7.9 K/mm3 (4.4-11.0)
[2022-12-05 04:15] LABS: ALB/GLOB Ratio 0.8 RATIO (0.9-2.4); AST(SGOT) 31 U/L (15-37); Alanine Aminotransfer ALT/SGPT 55 U/L (16-61); Albumin, Serum 2.8 g/dL (3.2-5.0); Alkaline Phosphatase 55 U/L (45-117); Anion Gap 4 (5-15); BUN 8 mg/dL (7-18); BUN/Creat Ratio 9.4 RATIO (10-20); Calcium,Total 8.3 mg/dL (8.5-10.1); Chloride 112 mmol/L (98-107); Creatinine, Serum 0.86 mg/dL (0.70-1.30); EST Glomerular Filtration Rate 109 mL/min (>60); Est Glom Filt Rate - Afr Amer 132 mL/min (>60); Estimated Creatinine Clearance 113.65 ml/min; Globulin 3.6 g/dL (2.2-4.2); Glucose 105 mg/dL (74-106); Potassium 4.5 mmol/L (3.5-5.1); Protein, Total 6.4 g/dL (6.4-8.2); Sodium Level 142 mmol/L (136-145)
--- NOTE | 2022-12-05 07:45 | PN.HOSP_ITS ---
Reason for Visit Reason for Visit: Diagnoses Depression, unspecified (12/04/22) Suicidal ideations (12/04/22) Poisoning by unspecified drugs, medicaments and biological substances, intentional self-harm, initial encounter (12/04/22) Objective Data Objective Data Vital Signs: Vital Signs Temp Pulse Resp BP Pulse Ox O2 Del Method 98.1 F 56 L 18 126/76 H 98 Room Air 12/05/22 06:00 12/05/22 06:00 12/05/22 06:00 12/05/22 06:00 12/05/22 06:00 12/05/22 06:00 Oxygen Delivery Method Room Air Weight: 145 lb 8.081 oz Body Mass Index (BMI) 20.3 Intake & Output: Intake and Output for Last 24 Hours 12/03/22 12/04/22 12/05/22 23:59 23:59 23:59 Intake Total 720 / 720 1466.67 / 1466.67 Output Total 400 / 400 1200 / 1200 Balance 320 / 320 266.67 / 266.67 Lab / Micro Data 12/05/22 03:50 12/05/22 03:50 Labs: Laboratory Results - last 24 hr 12/04/22 10:15: Urine Opiates Screen NEGATIVE, Urine Methadone Screen NEGATIVE, Ur Barbiturates Screen NEGATIVE, Ur Phencyclidine Scrn NEGATIVE, Ur Amphetamines Screen NEGATIVE, MDMA (Ecstasy) Screen POSITIVE H, U Benzodiazepines Scrn NEGATIVE, Urine Cocaine Screen NEGATIVE, U Cannabinoids Screen NEGATIVE, Ur Drug Screen Comment 12/04/22 10:31: Urine Color Yellow, Urine Clarity Clear, Urine pH 7.0, Ur Specific Boyers 1.010, Urine Protein 15 H, Urine Glucose (UA) Normal, Urine Ketones Negative, Urine Occult Blood Negative, Urine Nitrite Negative, Urine Bilirubin Negative, Urine Urobilinogen Normal, Ur Leukocyte Esterase Negative, Urine RBC 0 SEEN, Urine WBC 0 SEEN, Ur Squamous Epith Cells 0 SEEN, Urine Bacteria 0 SEEN, Urine Mucus 0 SEEN 12/04/22 10:38: WBC 8.7, RBC 4.47 L, Hgb 12.6 L, Hct 39.6 L, MCV 88.6, MCH 28.2, MCHC 31.8 L, RDW Std Deviation 46.1 H, RDW Coeff of Raphael 14.4, Plt Count 325, MPV 10.4, Immature Gran % (Auto) 0.600, Neut % (Auto) 65.8, Lymph % (Auto) 22.1, [place] % (Auto) 8.7, Eos % (Auto) 2.2, Baso % (Auto) 0.6, Absolute Neuts (auto) 5.7, Absolute Lymphs (auto) 1.91, Nucleated RBC % 0, Sodium 139, Potassium 3.7, Chloride 106, Carbon Dioxide 25.0, Anion Gap 8, BUN 9, Creatinine 1.01, Estim Creat Clear Calc 97.70, Est GFR (MDRD) Af Amer 109, Est GFR (MDRD) Non-Af 90, BUN/Creatinine Ratio 8.9 L, Glucose 100, Calcium 8.8, Phosphorus 2.4 L, Magnesium 2.3, Total Bilirubin 0.30, AST 40 H, ALT 63 H, Alkaline Phosphatase 60, Total Protein 7.1, Albumin 3.3, Globulin 3.8, Albumin/Globulin Ratio 0.9, Salicylates 2.1 L, Acetaminophen < 2.0 L, Ethyl Alcohol < 3.0 12/05/22 03:50: WBC 7.9, RBC 4.23 L, Hgb 11.9 L, Hct 38.2 L, MCV 90.3, MCH 28.1, MCHC 31.2 L, RDW Std Deviation 48.8 H, RDW Coeff of Raphael 14.7 H, Plt Count 299, MPV 10.4, Immature Gran % (Auto) 0.300, Neut % (Auto) 57.0, Lymph % (Auto) 25.2, [place] % (Auto) 10.5 H, Eos % (Auto) 6.4 H, Baso % (Auto) 0.6, Absolute Neuts (auto) 4.5, Absolute Lymphs (auto) 1.99, Nucleated RBC % 0, Sodium 142, Potassium 4.5, Chloride 112 H, Carbon Dioxide 26.0, Anion Gap 4 L, BUN 8, Creatinine 0.86, Estim Creat Clear Calc 113.65, Est GFR (MDRD) Af Amer 132, Est GFR (MDRD) Non-Af 109, BUN/Creatinine Ratio 9.4 L, Glucose 105, Calcium 8.3 L, Total Bilirubin 0.20, AST 31, ALT 55, Alkaline Phosphatase 55, Total Protein 6.4, Albumin 2.8 L, Globulin 3.6, Albumin/Globulin Ratio 0.8 L Micro: Microbiology 12/04/22 10:46 Nasal Secretion SARS-CoV-2 Antigen (Rapid) - Final Rhythm Strip Rhythm Strip: Sinus Tach Rate: 101 Ectopy: None Physical Exam Narrative Seen and examined. Patient denies any change in psychological or mental symptoms including hallucinations, delusions or aggression. Physical exam: General: Alert, awake oriented x3, Cooperative HEENT: Atraumatic, PERRLA, EOMI, Normocephalic Oral: No Gingival or Mucosal Lesions/ Ulcerations Neck: Supple, No JVD, Negative Carotid Bruits Lungs: Air entry diminished in bilateral lung bases. No crepitation/rhonchi Cardiovascular: Regular rate, Regular Rhythm, Normal S1, Normal S2, No murmurs Abdomen: Bowel Sounds Present, Soft, Non Tender, Non-Distended : No renal angle tenderness. No suprapubic tenderness. Extremities: No edema, Capillary Refill Less than 3 Seconds Skin: No rashes, No breakdown Musculoskeletal: No Tenderness to Palpation of Joints or Extremities Neurological: Limited understanding, reasons for admission. Cranial nerves II-X II grossly intact, DTR 2+/4 and Symmetrical, Neuro grossly intact Psych/Mental Status: Flat affect. Denies suicidal ideation Assessment & Plan Assessment/Plan (1) Depression with suicidal ideation: (2) Intentional overdose: QUALIFIERS: Encounter type: initial encounter Qualified Code(s): T50.902A - Poisoning by unspecified drugs, medicaments and biological substances, intentional self-harm, initial encounter PLAN: Plan This 32-year-old gentleman is being admitted for intentional drug overdose for suicidal ideation and intention. 1. Drug overdose with suicidal ideation/intention: Patient denies prior suicidal attempt. Exact quantity of bupropion and Suboxone is unclear as he tells a different quantities to me and ED physician. Patient is being admitted in ICU as per poison control recommendation. Liver chemistry shows mildly elevated ALT and AST. Total bili and alkaline phosphatase normal. Serum phosphorus ordered. Twelve-lead EKG daily a.m. to monitor for arrhythmia/QT prolongation. If patient gets seizure, benzodiazepine/Ativan is ordered. Seizure precaution. When patient is stable for 24 hours will need crisis management team to evaluate for inpatient psych facility placement 11/27: Twelve-lead EKG done. Labs reviewed. Serum magnesium normal. Serum phosphorus 2.4 on low normal. Serum potassium and sodium are normal range. Patient is medically stable. Discussed with transplant case manager and advised to call crisis management team for inpatient psych evaluation 2. Anxiety depression and history of methamphetamine use in the past and relapse a month ago: Patient states currently does not use methamphetamine. Hold antidepressant medications. 3. Chronic smoking: Patient started smoking in teenage but currently smokes half pack per day. Do not give nicotine patch as it has potential for seizure. DVT prophylaxis low risk. Charges/Coding Visit Charges Inpatient E&M: 32428 Subs Hosp L2
--- NOTE | 2022-12-05 10:08 | CASEMGMT ---
Social Work Per physician, pt is medically cleared for evaluation by Crisis for psyciatric placement. Phone call to Deisi at Crisis and clinical information faxed. Nursing updated. PIPE Rosario
[2022-12-05] MEDS: Pantoprazole Sodium 40 MG Tablet PO (10:15)
--- NOTE | 2022-12-05 11:36 | EKG12_ITS ---
Test Reason : QT Blood Pressure : / mmHG Vent. Rate : 054 BPM Atrial Rate : 054 BPM P-R Int : 132 ms QRS Dur : 086 ms QT Int : 434 ms P-R-T Axes : 056 051 035 degrees QTc Int : 411 ms Sinus bradycardia Otherwise normal ECG When compared with ECG of 04-DEC-2022 12:10, Vent. rate has decreased BY 35 BPM Confirmed by JESÚS SOSA MD ([id number]), editor greeting card PHILLY NEWMAN ([id number]) on 12/06/2022 10:11:37 AM Referred By: DONNY MILLIGAN Confirmed By:JESÚS SOSA MD
--- NOTE | 2022-12-05 12:40 | CASEMGMT ---
Social Work Crisis here to see pt and will be seeking placement at psychiatric facility. SW will await return call with accepting facility. PIPE Rosario
--- NOTE | 2022-12-05 15:18 | CASEMGMT ---
Social Work Return call from [facility] at [facility]. Pt has been accepted at [facility] by Nurse Practitioner Sharon Newton. Nurse to Nurse [phone]. Physician and nurse updated. Pt can discharge when transportation is arranged. PIPE Rosario
--- NOTE | 2022-12-05 15:21 | DCINST_ITS ---
Discharge Instructions Diet Discharge Diet: No restrictions Activity Discharge Activity: Return to Normal Activity Weight Bearing Status: Weight bearing as tolerated Dressing / Incision Call your doctor if you observe: Fever of 101 or Higher, Coldness, Increased Pain, Numbness or Tingling, Change in Color, Inability to urinate, Inability to have a bowel movement, Shortness of breath, Dizziness, Fainting spells, Swelling in the ankles, Chest pain, Prolonged hiccupping, Increased palpitations (irregular heartbeat) and Calf discomfort Follow Up Care When: IN 2 WEEKS Test Results: Test results from this visit will be discussed in further detail at your follow- up appointment, if applicable. Discharge Plan Admission Admit Date/Time: 12/04/22 13:06 Primary Reason for Your Visit: Drug overdose with suicidal intent Attending Provider: Dejan Cassidy Primary Care Provider: Davie Carvajal Discharge Orders/Prescriptions Prescriptions: Held bupropion HCl 300 mg tablet extended release 24 hr 300 mg PO DAILY Hold Instructions: Hold it Patient Comments: Take 1 tablet by mouth every morning buprenorphine-naloxone 8-2 mg film 1 film sublingual BID Hold Instructions: Hold it Patient Comments: Place 1 film under tongue twice a day Referrals / Follow Up: Davie Carvajal MD [Primary Care Provider] - Within 2 Weeks Disposition Disposition (needs filled in before D/C Order can be placed): [facility]
--- NOTE | 2022-12-05 15:23 | PCM.DC.SUM ---
Providers Date of Admission: 12/04/22 Primary Care Physician: Dr. Davie Carvajal MD Reason For Visit: INENTIONAL USE OF WELLBUTRIN/SUBOXONE Diagnosis Discharge Diagnosis (1) Depression with suicidal ideation: Status: Acute Code(s): F32.A - Depression, unspecified; R45.851 - Suicidal ideations (2) Intentional overdose: Status: Acute Code(s): T50.902A - Poisoning by unspecified drugs, medicaments and biological substances, intentional self-harm, initial encounter Qualifiers: Encounter type: initial encounter Qualified Code(s): T50.902A - Poisoning by unspecified drugs, medicaments and biological substances, intentional self-harm, initial encounter Plan This 32-year-old gentleman is being admitted for intentional drug overdose for suicidal ideation and intention. 1. Drug overdose with suicidal ideation/intention: Patient denies prior suicidal attempt. Exact quantity of bupropion and Suboxone is unclear as he tells a different quantities to me and ED physician. Patient is being admitted in ICU as per poison control recommendation. Liver chemistry shows mildly elevated ALT and AST. Total bili and alkaline phosphatase normal. Serum phosphorus ordered. Twelve-lead EKG daily a.m. to monitor for arrhythmia/QT prolongation. If patient gets seizure, benzodiazepine/Ativan is ordered. Seizure precaution. When patient is stable for 24 hours will need crisis management team to evaluate for inpatient psych facility placement 11/27: Twelve-lead EKG done. Twelve-lead EKG shows normal QTc interval 411. Sinus bradycardia 54 beats minute. Labs reviewed. Serum magnesium normal. Serum phosphorus 2.4 on low normal. Serum potassium and sodium are normal range. Patient is medically stable. Discussed with case management specialist and advised to call crisis management team for inpatient psych evaluation 2. Anxiety depression and history of methamphetamine use in the past and relapse a month ago: Patient states currently does not use methamphetamine. Hold antidepressant medications. 3. Chronic smoking: Patient started smoking in teenage but currently smokes half pack per day. Do not give nicotine patch as it has potential for seizure. DVT prophylaxis low risk. Patient was evaluated by crisis management team and was decided that he needs inpatient psych facility. Patient is transferred to inpatient psych facility. Medications at Discharge Home Medications buprenorphine 8 mg-naloxone 2 mg sublingual film 1 film sublingual BID substance abuse 07/17/22 bupropion HCl 300 mg 24 hr tablet, extended release 300 mg PO DAILY depression 07/17/22 Physical Exam Narrative Seen and examined. Patient denies any change in psychological or mental symptoms including hallucinations, delusions or aggression. Physical exam: General: Alert, awake oriented x3, Cooperative HEENT: Atraumatic, PERRLA, EOMI, Normocephalic Oral: No Gingival or Mucosal Lesions/ Ulcerations Neck: Supple, No JVD, Negative Carotid Bruits Lungs: Air entry diminished in bilateral lung bases. No crepitation/rhonchi Cardiovascular: Regular rate, Regular Rhythm, Normal S1, Normal S2, No murmurs Abdomen: Bowel Sounds Present, Soft, Non Tender, Non-Distended : No renal angle tenderness. No suprapubic tenderness. Extremities: No edema, Capillary Refill Less than 3 Seconds Skin: No rashes, No breakdown Musculoskeletal: No Tenderness to Palpation of Joints or Extremities Neurological: Limited understanding, reasons for admission. Cranial nerves II-XII grossly intact, DTR 2+/4 and Symmetrical, Neuro grossly intact Psych/Mental Status: Flat affect. Denies suicidal ideation Weight / BMI Weight Weight: 145 lb 8.081 oz Body Mass Index (BMI) 20.3 ABG / Lab / Microbiology Data 12/05/22 03:50 12/05/22 03:50 Laboratory: Laboratory Results - last 24 hr 12/05/22 03:50: WBC 7.9, RBC 4.23 L, Hgb 11.9 L, Hct 38.2 L, MCV 90.3, MCH 28.1, MCHC 31.2 L, RDW Std Deviation 48.8 H, RDW Coeff of Raphael 14.7 H, Plt Count 299, MPV 10.4, Immature Gran % (Auto) 0.300, Neut % (Auto) 57.0, Lymph % (Auto) 25.2, [place] % (Auto) 10.5 H, Eos % (Auto) 6.4 H, Baso % (Auto) 0.6, Absolute Neuts (auto) 4.5, Absolute Lymphs (auto) 1.99, Nucleated RBC % 0, Sodium 142, Potassium 4.5, Chloride 112 H, Carbon Dioxide 26.0, Anion Gap 4 L, BUN 8, Creatinine 0.86, Estim Creat Clear Calc 113.65, Est GFR (MDRD) Af Amer 132, Est GFR (MDRD) Non-Af 109, BUN/Creatinine Ratio 9.4 L, Glucose 105, Calcium 8.3 L, Total Bilirubin 0.20, AST 31, ALT 55, Alkaline Phosphatase 55, Total Protein 6.4, Albumin 2.8 L, Globulin 3.6, Albumin/Globulin Ratio 0.8 L Microbiology: Microbiology 12/05/22 12:35 Nasal Secretion SARS-CoV-2 Antigen (Rapid) - Final 12/04/22 10:46 Nasal Secretion SARS-CoV-2 Antigen (Rapid) - Final D/C Instructions Discharge Diet: No restrictions Weight Bearing Status: Weight bearing as tolerated Call your doctor if you observe: Fever of 101 or Higher, Coldness, Increased Pain, Numbness or Tingling, Change in Color, Inability to urinate, Inability to have a bowel movement, Shortness of breath, Dizziness, Fainting spells, Swelling in the ankles, Chest pain, Prolonged hiccupping, Increased palpitations (irregular heartbeat) and Calf discomfort When: IN 2 WEEKS Meaningful Use Info Meaningful Use Diagnoses (Choose all that apply): None applicable Discharge Plan Admission Admit Date/Time: 12/04/22 13:06 Primary Reason for Your Visit: Drug overdose with suicidal intent Attending Provider: Dejan Cassidy Primary Care Provider: Davie Carvajal Discharge Orders/Prescriptions Prescriptions: Held bupropion HCl 300 mg tablet extended release 24 hr 300 mg PO DAILY Hold Instructions: Hold it Patient Comments: Take 1 tablet by mouth every morning buprenorphine-naloxone 8-2 mg film 1 film sublingual BID Hold Instructions: Hold it Patient Comments: Place 1 film under tongue twice a day Referrals / Follow Up: Davie Carvajal MD [Primary Care Provider] - Within 2 Weeks Disposition Disposition (needs filled in before D/C Order can be placed): Psychiatric [facility] or Unit Charges/Coding Visit Charges Inpatient E&M: 85059 Disch Hosp >30min
--- NOTE | 2022-12-05 16:40 | CHAPLAIN ---
Type of Pastoral Visit _x__ Initial Visit ___ Follow-up Visit ___ On-call Visit ___ General Patient Visit ___ Spiritual Assessment ___ Family Conference ___ Bereavement ___ Rapid Response ___ Code Blue ___ Other (describe below) Pastoral Care Referral From _x__ Patient ___ Family ___ Nurse ___ Physician ___ Automobile Sales Representative ___ Customer Service Advisor ___ Other (describe below) Sacrament/Intervention ___ Active listening ___ Anointing ___ Mandaen ___ Bereavement ___ Communion ___ Martine exploration ___ ___ Life review _x__ Prayer ___ Reconciliation ___ Sacrament of Sick _x__ Supportive presence ___ Wedding ___ Other (describe below) Pastoral Comments patient is looking at his phone; there is a sitter in the room; pt does not actively engage in conversation but responds to questions asked; pt states that he is fine but that he is trying to just get life situations in control and maybe I need to have medicine changes or something; pt states that he is contacting his own maxillofacial pathology; pt accepts offer of prayer and then turns in bed to sleep
[2022-12-05] MEDS: Buprenorphine HCl 2 MG TAB.SUBL SL (17:07)
--- NOTE | 2022-12-05 17:30 | NURSING ---
Attempted to call report to [facility]. Mary states she will pass along and someone will call back at [phone] for report when they are available.
--- NOTE | 2022-12-05 19:25 | NURSING ---
Report called to Layne at [facility].
== END 2022-12-05 20:30 | DRG 817 ==
LOC: ED 13:24 → ICU 13:58 → MS3 12-05 05:45
PROVIDERS: Admitting Provider Internal Medicine; Emergency Provider Emergency Medicine; PCP Family Medicine; Visit Provider Internal Medicine
DX: T43.292A Poisoning by other antidepressants, intentional self-harm, initial encounter (principal); F17.210 Nicotine dependence, cigarettes, uncomplicated; T40.492A Poisoning by other synthetic narcotics, intentional self-harm, initial encounter; F32.A Depression, unspecified; F41.9 Anxiety disorder, unspecified; Z20.822 Contact with and (suspected) exposure to COVID-19; Z86.19 Personal history of other infectious and parasitic diseases
CPT/HCPCS: 80053; 80307; 80329; 81001; 82077; 83735; 84100; 85025; 87426; 87811; 93005; 97802; 99285; A4216; G0480

== ENCOUNTER 2023-01-16 01:04 | Emergency (ER) | payer MEDICAID, SELFPAY ==
[2023-01-16 01:05] VITALS: PULSE 146; RESP 18; TEMP 36.2; O2SAT 96; BMI 23.6
--- NOTE | 2023-01-16 01:08 | CT_ITS ---
EXAM: CT HEAD WITHOUT INTRAVENOUS CONTRAST CLINICAL INDICATION: altered MS, poss trauma TECHNIQUE: Multiple axial images were obtained of the head without intravenous contrast. This CT exam was performed using one or more of the following dose reduction techniques: automated exposure control, adjustment of the mA and/or kV according to patient size, and/or use of iterative reconstruction technique. RADIATION DOSE: CTDIvol = 44.99 mGy, DLP = 863.60 mGy-cm COMPARISON: No relevant prior studies available. FINDINGS: BRAIN AND EXTRA-AXIAL SPACES: Unremarkable. No intra- or extra-axial hemorrhage. No evidence of acute infarct. No intracranial mass or mass effect. There is preservation of the paul/white matter interface. Posterior fossa structures are unremarkable. Ventricles are appropriate for age. No hydrocephalus. Basal cisterns are patent. BONES/JOINTS: Unremarkable. No discrete lytic or blastic abnormalities. SINUSES: Mucosal thickening right maxillary and right anterior ethmoid sinuses. MASTOID AIR CELLS: Unremarkable. Clear. ORBITS: Visualized globes, extraocular muscles, optic nerves and retrobulbar fat appear unremarkable. CT/Brain/Head without Contrast IMPRESSION: 1. No acute intracranial abnormality. 2. Mucosal thickening right maxillary and right anterior ethmoid sinuses. Electronically Signed: Valentino Rondon MD at 2:07 EDT ,
[2023-01-16] MEDS: LORazepam 2 MG/ML Syringe 1 MG IM (01:16)
[2023-01-16] MEDS: Ziprasidone IM 20 MG/ML VIAL IM (01:16)
--- NOTE | 2023-01-16 01:38 | EDS_ITS ---
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 Had to be physically restrained in order to be brought to the emergency department. History very limited from the patient. [facility] Medical History Anxiety Depression with suicidal ideation Hepatitis History of irregular heartbeat Intentional overdose Smoker Substance abuse Home Medications buprenorphine 8 mg-naloxone 2 mg sublingual film 1 film sublingual BID substance abuse 07/17/22 [History Last Taken 12/04/22] bupropion HCl 300 mg 24 hr tablet, extended release 300 mg PO DAILY depression 07/17/22 [History Last Taken 12/04/22] Allergy/AdvReac Type Severity Reaction Status Date / Time ranitidine HCl [From Zantac] Allergy Other Verified 12/04/22 10:02 tramadol AdvReac Mild Other Verified 12/04/22 10:02 Social History Smoking Status: Current every day smoker tobacco type: cigarettes ROS ROS ED Review of Systems ROS Unobtainable: due to mental status Cardiovascular Cardiovascular: Denies chest pain Respiratory/Chest Respiratory/Chest: Denies dyspnea Gastrointestinal Gastrointestinal: Denies abdominal pain or nausea Musculoskeletal Musculoskeletal: Denies back pain or neck pain Neurologic Neurologic: Denies headache(s) EXAM Physical Exam Const Vital Signs: 01/16/23 01:05 01/16/23 02:05 01/16/23 03:05 Temperature 97.2 F L Temperature Source Temporal Pulse Rate 146 H Respiratory Rate 18 14 15 Pulse Ox 96 95 93 Oxygen Delivery Method Room Air Room Air Room Air 01/16/23 06:05 Temperature Temperature Source Pulse Rate 83 Respiratory Rate 16 Pulse Ox 94 Oxygen Delivery Method Room Air Positive well nourished and well developed General Appearance ED: well developed and NAD HEENT Reports moist mucous membranes HEENT Narrative: Abrasion right forehead, contusion right lateral superior orbital brim normocephalic Eyes PERRL and EOMs intact bilaterally Eyes Narrative: 3 mm pupils Neck full ROM, no lymphadenopathy and supple Chest Wall inspection of chest normal and palpation of chest normal Resp normal respiratory effort and clear to auscultation bilaterally Cardio regular rate, regular rhythm and no murmurs Rate: tachycardic GI non-tender and non-distended Auscultation: normoactive bowel sounds Palpation: soft Back/Spine General Back: other FROM Cervical Spine: Negative for cervical spine tenderness Thoracic Spine / Upper Back: Negative for thoracic spinal tenderness Lumbar Spine / Lower Back: Negative for lumbar spinal tenderness Extremity normal to inspection General Extremety ED: Negative for edema, pulses abnormal or tenderness General Extremity: Negative for edema or pulses abnormal Neuro CN's II-XII intact bilaterally and no sensory deficits noted Sensorium / Orientation: awake and alert Motor Exam: strength 5/5 throughout Psych Psych Narrative: Disoriented, flight of ideas, disorganized, agitated Activity / Motor Behavior: appropriate eye contact and psychomotor agitation Speech: normal speech Skin no rashes or lesions noted and no wounds MDM MDM MDM Narrative Medical decision making narrative: Because the patient was fairly nonsensical, although tachycardic and likely to be some type of substance abuse such as methamphetamine, he does have evidence of minor head injury, there is no history available to suggest how or when this occurred, so to be safe I obtained a head CT, I reviewed the images and the report which I agree with, luckily it shows no evidence of intracranial injury. Basic labs were obtained, his alcohol is negative, suggesting that this is all probably substance abuse/methamphetamine. 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 At 0630, I reevaluated the patient, he was arousable, he could take a couple of water and drink from it, said he remembers everything about last night, does not recall doing any drugs, he states he remembers holding the door for somebody at home and then the police were there, but he does not recall the exact scenario. He states he takes Suboxone for methamphetamine use. He is feeling better and wants to leave. When asked if he could call for a ride he states he will walk. He seems more oriented now, nursing was able to get him out of bed and he was able to stand and walk and so he was discharged, leaving before receiving any discharge papers. Lab Data Attestation: I reviewed the patient's lab results. Labs: Laboratory Results - last 24 hr 01/16/23 01:35 WBC 12.2 H RBC 4.11 L Hgb 11.6 L Hct 36.1 L MCV 87.8 MCH 28.2 MCHC 32.1 RDW Std Deviation 47.3 H RDW Coeff of Raphael 14.7 H Plt Count 315 MPV 9.9 Immature Gran % (Auto) 0.600 Neut % (Auto) 81.2 H Lymph % (Auto) 10.0 L [place] % (Auto) 6.7 Eos % (Auto) 1.1 Baso % (Auto) 0.4 Absolute Neuts (auto) 9.9 H Absolute Lymphs (auto) 1.22 Nucleated RBC % 0 Sodium 141 Potassium 3.6 Chloride 111 H Carbon Dioxide 25.0 Anion Gap 5 BUN 17 Creatinine 1.18 Estim Creat Clear Calc 89.04 Est GFR (MDRD) Af Amer 91 Est GFR (MDRD) Non-Af 75 BUN/Creatinine Ratio 14.4 Glucose 92 Calcium 8.8 Ethyl Alcohol < 3.0 Radiography Diagnostic Testing: Clinical Impression(s) from Imaging Studies Brain CT 01/16/23 01:08 IMPRESSION: 1. No acute intracranial abnormality. 2. Mucosal thickening right maxillary and right anterior ethmoid sinuses. Electronically Signed: Valentino Rondon MD at 2:07 EDT , Discharge Plan Triage Chief Complaint: Substance Abuse ED Provider: Sukhdeep Tubbs Dx/Rx/DC Orders Clinical Impression: Substance abuse, Agitation Instructions: Treating Drug Abuse and Addiction Prescriptions: No Action bupropion HCl 300 mg tablet extended release 24 hr 300 mg PO DAILY Hold Instructions: Hold it Patient Comments: Take 1 tablet by mouth every morning buprenorphine-naloxone 8-2 mg film 1 film sublingual BID Hold Instructions: Hold it Patient Comments: Place 1 film under tongue twice a day Primary Care Provider: Davie Carvajal Referrals: Davie Carvajal MD [Primary Care Provider] - [facility] [Non-Staff] - As Needed Disposition Disposition: Home, Self Care
[2023-01-16 01:44] LABS: Absolute Lymphocyte Count 1.22 X10^3/uL (0.83-4.51); Absolute Neutrophil Count 9.9 X10^3/uL (2.0-7.7); Basophil# 0.05 X10^3/uL; Basophil% 0.4 % (0-1); Eosinophil# 0.13 X10^3/uL; Eosinophils% 1.1 % (0-5); Hematocrit 36.1 % (40-54); Hemoglobin 11.6 g/dL (13.0-16.5); Lymphocyte # 1.22 X10^3/ul (0.83-4.51); Mean Corp Hgb Conc 32.1 g/dL (32-36); Mean Corpuscular Hgb 28.2 pg (27.0-32.0); Mean Corpuscular Volume 87.8 fL (80-94); Mean Platelet Vol. 9.9 fl (6.2-12.0); Monocyte# 0.81 X10^3/uL; Monocyte% 6.7 % (0-10); NRBC Flagged by Analyzer 0 % (0-5); Neutrophil % 81.2 % (47-70); Platelet Count 315 K/mm3 (150-450); RBC Distribution Width CV 14.7 % (11.6-14.6); RBC Distribution Width SD 47.3 fl (35.1-43.9); Red Blood Count 4.11 M/mm3 (4.6-6.2); White Blood Count 12.2 K/mm3 (4.4-11.0)
[2023-01-16 02:05] VITALS: RESP 14; O2SAT 95
[2023-01-16 02:06] LABS: Alcohol, Blood (Medical)-Serum < 3.0 mg/dL
[2023-01-16 02:08] LABS: Anion Gap 5 (5-15); BUN 17 mg/dL (7-18); BUN/Creat Ratio 14.4 RATIO (10-20); Calcium,Total 8.8 mg/dL (8.5-10.1); Chloride 111 mmol/L (98-107); Creatinine, Serum 1.18 mg/dL (0.70-1.30); EST Glomerular Filtration Rate 75 mL/min (>60); Est Glom Filt Rate - Afr Amer 91 mL/min (>60); Estimated Creatinine Clearance 89.04 ml/min; Glucose 92 mg/dL (74-106); Potassium 3.6 mmol/L (3.5-5.1); Sodium Level 141 mmol/L (136-145)
[2023-01-16 03:05] VITALS: RESP 15; O2SAT 93
[2023-01-16 06:05] VITALS: PULSE 83; RESP 16; O2SAT 94
[2023-01-16 06:37] VITALS: PULSE 83; RESP 18; O2SAT 94
== END 2023-01-16 06:38 | disposition home or self-care (01) ==
PROVIDERS: Emergency Provider Emergency Medicine; PCP Family Medicine; Visit Provider Emergency Medicine
DX: F15.10 Other stimulant abuse, uncomplicated (principal); R45.1 Restlessness and agitation; F17.210 Nicotine dependence, cigarettes, uncomplicated
CPT/HCPCS: 70450; 80048; 82077; 85025; 96372; 99284; J3486